=== PATIENT | male | born 1955 | race Caucasian/White ===

== ENCOUNTER 2016-08-29 05:29 | Day surgery (SDC) | payer OTHER ==
[2016-08-22 08:15] VITALS: Ht 170.2 cm; Wt 115.8 kg
--- NOTE | 2016-08-22 08:55 | PAT Medication Instructions ---
Service Date August 22, 2016. Current Home Medication List Alprazolam (Xanax), 0.5 MG PO UD PRN for PANIC ATTACKS/ANXIETY Amoxicillin (Amoxil), 4 TAB PO 1 HOUR BEFORE DENTAL Ascorbic Acid (Vitamin C), 1 TAB PO BID Aspirin (Aspirin Ec), 81 MG PO QAM Atenolol (Tenormin), 25 MG PO HS Benazepril (Lotensin), 20 MG PO QAM Citalopram Hydrobromide (Celexa), 10 MG PO HS Cyclobenzaprine Hcl (Flexeril), 10 MG PO TID PRN for Muscle Spasms Diclofenac (Voltaren ), 20 MG PO BID Lorazepam (Ativan), 1-2 TAB PO DAILY PRN for ANXIETY/PANIC ATTACKS Losartan Potassium (Cozaar), 50 MG PO QAM Multivitamin (Multivitamin), 1 TAB PO QAM Pantoprazole (Protonix), 40 MG PO QAM Rosuvastatin Calcium (Crestor), 20 MG PO HS Tramadol (Ultram), 1-2 TAB PO Q6 PRN for Pain Medication Instructions For Your Scheduled Surgery - Hold the following medications the morning of surgery: Ascorbic Acid (Vitamin C), 1 TAB PO BID Benazepril (Lotensin), 20 MG PO QAM Losartan Potassium (Cozaar), 50 MG PO QAM Multivitamin (Multivitamin), 1 TAB PO QAM Diclofenac (Voltaren ), 20 MG PO BID (otherwise okay to continue per surgeon) Cyclobenzaprine Hcl (Flexeril), 10 MG PO TID PRN for Muscle Spasms - Take the following medications the morning of surgery with a sip of water OTHERWISE NOTHING TO EAT OR DRINK AFTER MIDNIGHT: Tramadol (Ultram), 1-2 TAB PO Q6 PRN for Pain Aspirin (Aspirin Ec), 81 MG PO QAM (okay to continue per surgeon) Lorazepam (Ativan), 1-2 TAB PO DAILY PRN for ANXIETY/PANIC ATTACKS Alprazolam (Xanax), 0.5 MG PO UD PRN for PANIC ATTACKS/ANXIETY Pantoprazole (Protonix), 40 MG PO QAM - Take the following medications as scheduled the night before surgery: Ascorbic Acid (Vitamin C), 1 TAB PO BID Tramadol (Ultram), 1-2 TAB PO Q6 PRN for Pain Lorazepam (Ativan), 1-2 TAB PO DAILY PRN for ANXIETY/PANIC ATTACKS Atenolol (Tenormin), 25 MG PO HS Citalopram Hydrobromide (Celexa), 10 MG PO HS Rosuvastatin Calcium (Crestor), 20 MG PO HS Alprazolam (Xanax), 0.5 MG PO UD PRN for PANIC ATTACKS/ANXIETY Diclofenac (Voltaren ), 20 MG PO BID If you have any questions please call us at [phone] or [phone] or [phone]
[2016-08-22 10:04] LABS: URINE APPEARANCE CLEAR (CLEAR); URINE BILIRUBIN NEG (NEG); URINE COLOR DK YELLOW; URINE NITRITE NEG (NEG); URINE SPECIFIC GRAVITY 1.024 (1.000-1.030); UROBILINOGEN NEG (NEG); ZZUR CULT IF INDIC CLEAN CATCH NO
[2016-08-22 10:32] LABS: MANUAL MICROSCOPIC REQUIRED? NO; REVIEW REQ? NO
[~2016-08-29] VITALS: Ht 170.2 cm; Wt 115.8 kg
[~2016-08-29 05:29] MED LIST: ALPR-411 PO; AMOX500C3 PO; ASCA500 PO; ASPI81TA28 PO; ATEN-173 PO; BENA20TA14 PO; CITA10TA8 PO; CRS/10 PO; CYCL10TA6 PO; DICL1TAB5 PO; LORA-741 PO; LOSA50TA6 PO; MULT-506 PO; PANT40TA PO; TRAM-10 PO
[2016-08-29] MEDS ORDERED: CEFAZOLIN 2000 MG/60 ML D5W IV SCH (06:00)
[2016-08-29 06:06] VITALS: BP 132/74; PULSE 56; TEMP 37.3; O2SAT 96
[2016-08-29] MEDS ORDERED: ONDANSETRON INJ 2 MG/ML 2 ML VIAL ONE (06:29)
[2016-08-29] MEDS ORDERED: GLYCOPYRROLATE INJ 0.2 MG/ML VIAL ONE ×2 (06:29→09:58)
[2016-08-29] MEDS ORDERED: LIDOCAINE HCL 2% 2 ML VIAL (20MG/ML) ONE (06:29)
[2016-08-29] MEDS ORDERED: MIDAZOLAM HCL 1 MG/ML 2ML VIAL ONE (06:29)
[2016-08-29] MEDS ORDERED: PROPOFOL IV EMULSION 10 MG/ML 20 ML VIAL IV ONE ×2 (06:29→08:01)
[2016-08-29] MEDS ORDERED: DEXAMETHASONE SOD INJ 4 MG/ML VIAL ONE (06:29)
[2016-08-29] MEDS ORDERED: NEOSTIGMINE METHYLSULFATE 5 MG/5 ML SYR ONE (06:29)
[2016-08-29] MEDS ORDERED: FENTANYL CITRATE INJ 50 MCG/1 ML 2 ML VIAL ONE ×2 (06:29)
[2016-08-29] MEDS ORDERED: ROCURONIUM BROMIDE 10 MG/ML 5 ML VIAL ONE ×2 (06:29→08:01)
[2016-08-29] MEDS ORDERED: CEFAZOLIN SOD 1 GM VIAL ONE (06:34)
[2016-08-29] MEDS ORDERED: LIDOCAINE HCL 1% 20 ML VIAL ONE (06:34)
[2016-08-29] MEDS ORDERED: BUPIVACAINE 0.5 % 5 MG/1 ML MPF 30ML VIAL ONE (06:34)
--- NOTE | 2016-08-29 06:51 | History & Physical Bridge Note ---
H&P Re-Evaluation Bridge Note: I have examined the patient, reviewed the History & Physical and in the interval since the performance of the History & Physical I have noted the following changes of clinical significance: No changes noted
[2016-08-29] MEDS ORDERED: PHENYLEPHRINE 100MCG/ML 5ML SYR ONE (07:15)
[2016-08-29] MEDS ORDERED: ONDANSETRON INJ 2 MG/ML 2 ML VIAL IV PRN ×2 (07:30→09:30)
[2016-08-29] MEDS ORDERED: EpHEDrine SULFATE INJ 50 MG/ML AMP IV PRN (07:30)
[2016-08-29] MEDS ORDERED: HYDROmorphone INJ 1 MG/ML SYR IV PRN (07:30)
[2016-08-29] MEDS ORDERED: PROMETHAZINE HCL INJ 6.25 MG in SODIUM CHLORIDE 0.9% 50ML 50 ML IV PRN (07:30)
[2016-08-29] MEDS ORDERED: ATROPINE SULFATE 0.1 MG/ML 5ML SYR IV PRN (07:30)
[2016-08-29] MEDS ORDERED: FENTANYL CITRATE INJ 50 MCG/1 ML 2 ML VIAL IV PRN (07:30)
[2016-08-29] MEDS ORDERED: EpHEDrine SULFATE INJ 50 MG/ML AMP ONE (07:45)
[2016-08-29] MEDS ORDERED: SODIUM CHLORIDE 0.9% 1000ML 1,000 ML IV SCH (09:17)
--- NOTE | 2016-08-29 09:17 | [facility] Post Operative Brief Note ---
Immediate Operative Summary Operative Date August 29, 2016. Pre-Operative Diagnosis Ventral Hernia Post-Operative Diagnosis Ventral Hernia Procedure(s) Performed Ventral Hernia Repair with Mesh Surgeon Dr. Trent Timber Framer Surgeon(s) VELVET Diana Estimated Blood Loss 5 cc Findings See dictation Specimens none per surgeon Drains None Anesthesia General Complication(s) None Disposition Recovery Room / PACU
--- NOTE | 2016-08-29 09:20 | Discharge Instructions ---
Discharge Instructions Date of Service August 29, 2016. Admission Reason for Admission: Ventral Hernia Discharge Discharge Diagnosis / Problem: Same Discharge Goals Goal(s): Decrease discomfort Activity Recommendations Activity Limitations: per Instructions/Follow-up section Lifting Limitations: no more than 10 pounds (for 6 weeks) Shower/Bathe: may shower/bathe in 3 days (Shower only) . Instructions / Follow-Up Instructions / Follow-Up ACTIVITY RECOMMENDATIONS: * Walk as much as possible. * No heavy lifting (>10 lbs.) for 6 weeks. SPECIAL CARE INSTRUCTIONS: * Ice to hernia repair site on and off until bedtime tonight. * Remove outer dressing on . * May shower after dressing removed. Let water run over area and pat dry. * Leave steri strips on for one week. * Call the surgeon's office with any questions or concerns - (ex. temperature higher than 101 degrees F, excessive bleeding or pain). MEDICATIONS: Resume previous medications unless instructed otherwise by your surgeon. * Ibuprofen 600 mg every 6 hours with food * Percocet 1 every 4 hours, as needed for pain FOLLOW UP VISIT: If not already scheduled, please call the office to schedule a two week follow- up appointment. Office number Current Hospital Diet Patient's current hospital diet: Discharge Diet Recommended Diet: Regular Diet Procedures Procedures Performed: Ventral Hernia Repair with Mesh Pending Studies Studies pending at discharge: no Medical Emergencies . Who to Call and When: Medical Emergencies: If at any time you feel your situation is an emergency, please call 911 immediately. . Non-Emergent Contact Non-Emergency issues call your: Primary Care Provider, Surgeon Call Non-Emergent contact if: your pain is worsening, wound has increased redness, wound has increased pain . "Provider Documentation" section prepared by Kahlil Trent. . VTE Core Measure Inpt VTE Proph given/why not?: Treatment not indicated
[2016-08-29] MEDS ORDERED: MoRPHine SULFATE 4 MG/ML 1 ML CARP\\VIAL IV PRN (09:30)
[2016-08-29] MEDS ORDERED: OXYCODONE/ACETAMINOPHEN 5-325 TAB PO PRN (09:30)
[2016-08-29 09:52] VITALS: BP 125/70; PULSE 65; TEMP 36.9; O2SAT 98
--- NOTE | 2016-08-29 09:52 | Anesthesiology Progress Note ---
Anesthesia Post Op Note Date & Time August 29, 2016 at 09:53 Vital Signs Pain Intensity: 0 Vital Signs Past 12 Hours Date Time Temp Pulse Resp B/P Pulse Ox O2 Delivery O2 Flow Rate FiO2 08/29/16 09:43 69 18 08/29/16 09:43 69 18 91 08/29/16 09:41 127/67 08/29/16 09:38 67 13 96 08/29/16 09:38 67 13 08/29/16 09:37 67 21 94 08/29/16 09:37 68 21 08/29/16 09:36 131/69 08/29/16 09:36 36.4 68 16 131/69 99 Nasal Cannula 2 08/29/16 09:32 68 15 92 08/29/16 09:32 68 15 08/29/16 09:31 134/63 08/29/16 09:27 68 17 94 08/29/16 09:27 68 17 08/29/16 09:26 123/67 08/29/16 09:22 71 14 08/29/16 09:22 71 14 93 08/29/16 09:21 128/65 08/29/16 09:17 70 13 08/29/16 09:17 70 13 100 08/29/16 09:16 130/60 08/29/16 09:12 74 18 08/29/16 09:12 74 18 99 08/29/16 09:11 76 16 133/61 99 08/29/16 09:11 77 16 08/29/16 09:06 72 17 127/63 92 08/29/16 09:06 72 17 08/29/16 09:02 121/64 08/29/16 09:01 36.4 73 14 121/64 97 Mask 10 08/29/16 09:01 70 97 08/29/16 09:01 70 08/29/16 06:06 37.3 56 18 132/74 96 Room Air Notes Mental Status: alert / awake / arousable, participated in evaluation Pt Amnestic to Procedure: Yes Nausea / Vomiting: adequately controlled Pain: adequately controlled Airway Patency, RR, SpO2: stable & adequate BP & HR: stable & adequate Hydration State: stable & adequate Anesthetic Complications: no major complications apparent
[2016-08-29 10:20] VITALS: BP 113/58; PULSE 64; TEMP 36.7; O2SAT 95
[2016-08-29 10:50] VITALS: BP 109/62; PULSE 61; TEMP 36.7; O2SAT 95
[2016-08-29 11:15] VITALS: BP 141/71; PULSE 64; TEMP 36.7; O2SAT 94
--- NOTE | 2016-08-29 12:45 | OPERATIVE REPORT ---
DATE OF OPERATION: 08/29/2016 PREOPERATIVE DIAGNOSIS: Ventral hernia. POSTOPERATIVE DIAGNOSIS: Same. PROCEDURE: Repair of ventral hernia. SURGEON: Dr. Kahlil Trent. FINDINGS: The patient had 2 ventral defects. One measured approximately 2.5 cm and the other was less than a centimeter. There was a fascial bridge measuring approximately 5 mm between them and when that was divided to create one defect, the entire defect measured about 3.5 cm. The defect was located at the superior edge of the mesh that had been placed previously. There were no incarcerated bowel contents. There was some omentum within the hernia sac. TECHNIQUE: The patient was marked in the preop holding area, brought to the operating room and placed on the operating table, given a general anesthetic and the area was prepped and draped in usual sterile fashion. Transverse incision was made over the previously marked area, carried down through the subcutaneous tissue until the hernia sac could be identified. The hernia sac was away from the surrounding subcutaneous tissue using blunt, sharp and cautery dissection where appropriate. This dissection was carried down to the fascial defect superiorly. The fascial defect was identified on the left superior and then to the right, but the hernia sac had peeled on top of the fascia inferiorly and was densely adherent there due to previous scar tissue. The hernia sac was opened. The adhesion of the omentum to the internal portion was divided and the omentum was placed back into its anatomic position. The hernia sac was then dissected off the top of the fascia on the inferior side helping me identify the entire circumference of the edge of the fascial defect. Working on the superior side first, the peritoneum was peeled off the overlying fascia and then working with similar dissection to the left and to the right. It required more meticulous dissection inferiorly, peeling the peritoneum and some of the posterior sheath off the mesh that had been previously placed, but plane was able to be established for a distance of 2 cm beneath the previous mesh inferiorly and then at least 3 cm around the rest of the hernia defect. The peritoneum was then closed and any openings that had been created using interrupted 2-0 Vicryl. A round 10 cm mesh was then placed. I did have to trim it inferiorly over the area where the mesh was previously placed. The mesh fit nicely and it was lying flat. It was secured to the undersurface of the fascia in 4 quadrants using 0 PDS. The fascial defect was then closed using #1 PDS and the horizontal mattress sutures securing the mesh to the undersurface was then secured. The wound was irrigated and irrigation removed. The area was inspected for bleeding and none was seen. The subcutaneous tissue was closed with running 2-0 Vicryl and the skin was closed with 4-0 Monocryl in a running subcuticular fashion. The skin was anesthetized with 0.5% Marcaine. The skin was cleansed, dried, benzoin placed, Steri-Strips applied and a pressure dressing applied. The estimated blood loss was 5 mL. Sponge, needle, and instrument counts were correct prior to closure. The patient tolerated surgical procedure without complication and was transferred to recovery. I attest to the content of the Intraoperative Record and any orders documented therein. Any exceptio ns are noted below.
[2017-02-20] MEDS ORDERED: FURO-85 PO (15:29)
[2017-02-20] MEDS ORDERED: TAMS0.4C38 PO (15:29)
[2017-02-20] MEDS ORDERED: PHEN-876 PO (15:29)
[2017-02-20] MEDS ORDERED: OXYC-57 PO (15:29)
[2017-02-20] MEDS ORDERED: MELATAB2 PO (15:29)
[2017-02-20] MEDS ORDERED: [UNRECOGNIZED DRUG - OTHER] PO (15:31)
== END 2016-08-29 11:29 | disposition home or self-care (01) ==
LOC: C.ACU 05:29
PROVIDERS: ATTEND Surgery
DX: K43.9 Ventral hernia without obstruction or gangrene (principal); I25.10 Atherosclerotic heart disease of native coronary artery without angina pectoris; E78.5 Hyperlipidemia, unspecified; M51.26 Other intervertebral disc displacement, lumbar region; I10 Essential (primary) hypertension; I25.2 Old myocardial infarction

== ENCOUNTER 2016-10-18 19:42 | Observation (INO) | payer OTHER ==
[~2016-10-18] VITALS: Ht 170.2 cm; Wt 109.2 kg
[2016-10-18] MEDS ORDERED: FURO-85 PO (20:14)
[2016-10-18] MEDS ORDERED: SODIUM CHLORIDE 0.9% 1000ML 1,000 ML IV STA (20:29)
[2016-10-18 20:46] LABS: HEMATOCRIT 43.6 % (42-52); MEAN CELL VOLUME 86.5 fL (80-100); MEAN CORPUSCULAR HEMOGLOBIN 29.4 pg (25-34); MEAN CORPUSCULAR HGB CONC 33.9 g/dl (32-36); MEAN PLATELET VOLUME 10.6 fL (7.4-10.4); PLATELET COUNT 234 K/uL (130-400); RED BLOOD COUNT 5.04 M/uL (4.7-6.1); WHITE BLOOD COUNT 12.46 K/uL (4.8-10.8)
--- NOTE | 2016-10-18 20:53 | DIAGNOSTIC IMAGING REPORT ---
CHEST ONE VIEW PORTABLE CLINICAL HISTORY: Weakness. Near syncope. Dizziness. COMPARISON STUDY: No previous studies for comparison. FINDINGS: The patient is mildly rotated. There is no pneumothorax or pleural effusion. Cardiac size is normal. There is no evidence of pulmonary edema. No consolidation is identified. IMPRESSION: No acute cardiopulmonary findings. Electronically signed by: Jose Ridley M.D. 10/18/2016 8:52 PM Dictated Date/Time: 10/18/2016 8:51 PM
[2016-10-18 21:03] LABS: PROTHROMBIN TIME (PATIENT) 10.7 SECONDS (9.0-12.0)
[2016-10-18 21:08] LABS: ALT/SGPT 37 U/L (12-78); BLOOD UREA NITROGEN 15 mg/dl (7-18); BUN/CREATININE RATIO 12.4 (10-20); CALCIUM 10.2 mg/dl (8.5-10.1); CARBON DIOXIDE 24 mmol/L (21-32); CHLORIDE 104 mmol/L (98-107); GLUCOSE 123 mg/dl (70-99); POTASSIUM 3.6 mmol/L (3.5-5.1); SODIUM 139 mmol/L (136-145)
[2016-10-18 21:17] LABS: BASO % 0.2 %; BASO ABS # 0.02 K/uL (0-0.2); COMPLETE YES; EOS % 0.7 %; IG% 0.3 %; LYMPH % 11.2 %; LYMPH ABS # 1.39 K/uL (1.2-3.4); MONO % 4.3 %; NEUT % 83.3 %
[2016-10-18 21:19] LABS: ALKALINE PHOSPHATASE 61 U/L (45-117); AST/SGOT 26 U/L (15-37); CKMB/CK RATIO 1.1 (0-3.0)
[2016-10-18 21:30] LABS: URINE APPEARANCE CLEAR (CLEAR); URINE BILIRUBIN NEG (NEG); URINE COLOR DK YELLOW; URINE EPITHELIAL CELL AUTO >30 /lpf (0-5); URINE NITRITE NEG (NEG); URINE SPECIFIC GRAVITY 1.021 (1.000-1.030); UROBILINOGEN NEG (NEG)
[2016-10-18 21:34] LABS: MANUAL MICROSCOPIC REQUIRED? NO; REVIEW REQ? YES
[2016-10-18 21:41] LABS: SULFASALICYLIC ACID NEG (NEG)
[2016-10-18 21:52] LABS: URINE MUCUS PRESENT (NONE PRSENT)
[2016-10-18] MEDS ORDERED: POLYETHYLENE (MIRALAX) 17 GM PACK PO PRN (23:30)
[2016-10-18] MEDS ORDERED: NITROGLYCERIN 0.4 MG SL PER TAB CHARGE SL PRN (23:30)
[2016-10-18] MEDS ORDERED: ONDANSETRON INJ 2 MG/ML 2 ML VIAL IV PRN (23:30)
[2016-10-18] MEDS ORDERED: MoRPHine SULFATE 2 MG/ML CARP IV PRN (23:30)
[2016-10-18] MEDS ORDERED: ACETAMINOPHEN 325 MG TAB PO PRN (23:30)
[2016-10-18] MEDS ORDERED: CYCLOBENZAPRINE HCL 10 MG TAB PO PRN (23:45)
[2016-10-18] MEDS ORDERED: ALPRAZOLAM 0.5 MG TAB PO PRN (23:45)
[2016-10-18] MEDS ORDERED: TRAMADOL HCL 50 MG TAB PO PRN (23:45)
[2016-10-19 00:20] VITALS: BP 128/80; PULSE 54; TEMP 36.7; O2SAT 93; Ht 170.2 cm; Wt 109.2 kg
[2016-10-19] MEDS ORDERED: IV FLUIDS COMPLETED PRN (00:45)
--- NOTE | 2016-10-19 01:46 | EMERGENCY ROOM VISIT NOTE ---
History Report prepared by Kesha: Radha Cotto Under the Supervision of: Dr. Kanu Solis M.D. First contact with patient: 20:29 Chief Complaint: DIZZY Stated Complaint: DIZZY, NEAR SYNCOPE, VOMITING Nursing Triage Summary: Patient arrived to [facility] via ALS from home. Patient has a history of 4 cardiac stents being placed in 2002, HTN, high cholesterol, bleeding ulcers (for which he takes protonix), umbilical hernia repair x 2, cataract surgery. Patient states "I was outside working on my truck and suddenly got very sick. I became very short of breath, dizzy, nauseated, pale, clammy and diaphoretic. I vomited about 4 times and believe I passed out while trying to get to the house. I was able to finally call my around 1730 for some help." EMS report that upon their arrival, he was still pale and diaphoretic. Patient had emesis x 2 with the EMS crew. Upon arrival to the ED, patient reports that he is feeling much better. Patient is still dizzy with generalized weakness; no pain; nausea is intermittent. Patient reports a recent diagnosis of bleeding ulcers for which he was started on Protonix. Patient took an 81mg ASA at home and was given an additional 243mg of ASA in route to the ED. History of Present Illness The patient is a 61 year old male who presents to the Emergency Room with complaints of sudden dizziness that began this afternoon. The patient states that he was outside working on his truck when he started feeling dizzy, short of breath, and diaphoretic. He additionally notes that he was pale and clammy. The patient states that he had a loss of consciousness for an unknown amount of time. He states that he remembers staggering into his house after pulling himself off of the ground. The patient states that for the past several months he has been worked up for his known kidney stones. The patient's notes that the patient's currently has a 1 cm stone in his kidney. She states that the patient states that the patient has had intermittent abdominal pain, back pain, and urinary symptoms. The patient reports intermittent nausea, but states that he did vomit four times. He additionally notes generalized weakness. The patient denies any recent prolonged travel or history of blood clots. 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 He states that he had four cardiac stents placed in 2002 and a history of a previous LA. Pt denies headache, fevers, chills, visual changes, neck pain, chest pain, leg pain or cramps, melena, hematochezia, numbness, lymphadenopathy, rash, or other complaints. Source of History: patient, spouse/significant other () Onset: this afternoon Position: other (global) Quality: other (dizziness) Timing: other (sudden) Associated Symptoms: + LOC, + diaphoresis, + SOB, + nausea, + vomiting, + abdominal pain, + back pain, + urinary symptoms, + numbness Note: Associated Symptoms: pale, clammy Review of Systems See HPI for pertinent positives and negatives. A total of ten systems were reviewed and were otherwise negative. Past Medical & Surgical Medical Problems: (1) Coronary atherosclerosis (2) Dyslipidemia (3) Hypertension (4) Myocardial infarction (5) Syncope Surgical Problems: (1) H/O umbilical hernia repair (2) History of carpal tunnel surgery (3) S/P angioplasty with stent Family History No pertinent family history stated Social History Smoking Status: Never Smoker Marital Status: Housing Status: lives with significant other Occupation Status: employed Current/Historical Medications Scheduled Amoxicillin (Amoxil), 4 TAB PO 1 HOUR BEFORE DENTAL Ascorbic Acid (Vitamin C), 250 MG PO BID Aspirin (Aspirin Ec), 81 MG PO QAM Atenolol (Tenormin), 25 MG PO HS Benazepril (Lotensin), 20 MG PO QAM Citalopram Hydrobromide (Celexa), 20 MG PO HS Losartan Potassium (Cozaar), 50 MG PO QAM Multivitamin (Multivitamin), 1 TAB PO QAM Pantoprazole (Protonix), 40 MG PO QAM Rosuvastatin Calcium (Crestor), 20 MG PO HS Scheduled PRN Alprazolam (Xanax), 0.5 MG PO UD PRN for PANIC ATTACKS/ANXIETY Cyclobenzaprine Hcl (Flexeril), 10 MG PO TID PRN for Muscle Spasms Diclofenac (Voltaren ), 20 MG PO BID PRN for knee pain Lorazepam (Ativan), 1-2 TAB PO DAILY PRN for ANXIETY/PANIC ATTACKS Tramadol (Ultram), 1-2 TAB PO Q6 PRN for Pain Allergies Coded Allergies: Simvastatin (Verified Adverse Reaction, Unknown, PAIN IN LOWER EXTREMITIES , 10/18/16) Physical Exam Vital Signs Date Time Temp Pulse Resp B/P (MAP) Pulse Ox O2 Delivery O2 Flow Rate FiO2 10/18/16 22:06 55 18 132/80 96 Room Air 10/18/16 21:19 54 20 116/80 92 Room Air 10/18/16 20:33 98 Room Air 10/18/16 20:24 56 10/18/16 19:48 60 20 110/73 97 Room Air 65 133/82 65 111/94 10/18/16 19:48 97 Room Air 10/18/16 19:45 37.2 60 18 110/73 96 Room Air Physical Exam GENERAL: Awake, alert, well-appearing, in no distress HENT: Normocephalic, atraumatic. Oropharynx unremarkable. EYES: Normal conjunctiva. Sclera non-icteric. NECK: Supple. No nuchal rigidity. FROM. No JVD. RESPIRATORY: Clear to auscultation. CARDIAC: Regular rate, normal rhythm. Extremities warm and well perfused. Pulses equal. ABDOMEN: Soft, non-distended. No tenderness to palpation. No rebound or guarding. No masses. RECTAL: Deferred. MUSCULOSKELETAL: Chest examination reveals no tenderness. The back is symmetrical on inspection without obvious abnormality. There is no CVA tenderness to palpation. No joint edema. LOWER EXTREMITIES: Calves are equal size bilaterally and non-tender. No edema. No discoloration. NEURO: Normal sensorium. No sensory or motor deficits noted. SKIN: No rash or jaundice noted. Medical Decision & Procedures ER Provider Diagnostic Interpretation: X-ray: Per my interpretation, radiologist review. CHEST ONE VIEW PORTABLE CLINICAL HISTORY: Weakness. Near syncope. Dizziness. COMPARISON STUDY: No previous studies for comparison. FINDINGS: The patient is mildly rotated. There is no pneumothorax or pleural effusion. Cardiac size is normal. There is no evidence of pulmonary edema. No consolidation is identified. IMPRESSION: No acute cardiopulmonary findings. Electronically signed by: Jose Ridley M.D. 10/18/2016 8:52 PM Dictated Date/Time: 10/18/2016 8:51 PM Laboratory Results 10/18/16 20:05 Red Blood Count 5.04, Mean Corpuscular Volume 86.5, Mean Corpuscular Hemoglobin 29.4, Mean Corpuscular Hemoglobin Concent 33.9, Mean Platelet Volume 10.6, Neutrophils (%) (Auto) 83.3, Lymphocytes (%) (Auto) 11.2, Monocytes (%) (Auto) 4.3, Eosinophils (%) (Auto) 0.7, Basophils (%) (Auto) 0.2, Neutrophils # (Auto) 10.39, Lymphocytes # (Auto) 1.39, Monocytes # (Auto) 0.53, Eosinophils # (Auto) 0.09, Basophils # (Auto) 0.02 10/18/16 20:05 Test 10/18/16 20:05 10/18/16 20:40 White Blood Count 12.46 K/uL (4.8-10.8) Red Blood Count 5.04 M/uL (4.7-6.1) Hemoglobin 14.8 g/dL (14.0-18.0) Hematocrit 43.6 % (42-52) Mean Corpuscular Volume 86.5 fL (80-100) Mean Corpuscular Hemoglobin 29.4 pg (25-34) Mean Corpuscular Hemoglobin Concent 33.9 g/dl (32-36) Platelet Count 234 K/uL (130-400) Mean Platelet Volume 10.6 fL (7.4-10.4) Neutrophils (%) (Auto) 83.3 % Lymphocytes (%) (Auto) 11.2 % Monocytes (%) (Auto) 4.3 % Eosinophils (%) (Auto) 0.7 % Basophils (%) (Auto) 0.2 % Neutrophils # (Auto) 10.39 K/uL (1.4-6.5) Lymphocytes # (Auto) 1.39 K/uL (1.2-3.4) Monocytes # (Auto) 0.53 K/uL (0.11-0.59) Eosinophils # (Auto) 0.09 K/uL (0-0.5) Basophils # (Auto) 0.02 K/uL (0-0.2) RDW Standard Deviation 42.5 fL (36.4-46.3) RDW Coefficient of Variation 13.4 % (11.5-14.5) Immature Granulocyte % (Auto) 0.3 % Immature Granulocyte # (Auto) 0.04 K/uL (0.00-0.02) Prothrombin Time 10.7 SECONDS (9.0-12.0) Prothromb Time International Ratio 1.0 (0.9-1.1) Activated Partial Thromboplast Time 25.0 SECONDS (21.0-31.0) Partial Thromboplastin Ratio 1.0 Anion Gap 11.0 mmol/L (3-11) Est Creatinine Clear Calc Drug Dose 76.7 ml/min Estimated GFR () 75.2 Estimated GFR (Non- 64.9 BUN/Creatinine Ratio 12.4 (10-20) Calcium Level 10.2 mg/dl (8.5-10.1) Magnesium Level 2.0 mg/dl (1.8-2.4) Total Bilirubin 0.5 mg/dl (0.2-1) Direct Bilirubin 0.1 mg/dl (0-0.2) Aspartate Amino Transf (AST/SGOT) 26 U/L (15-37) Alanine Aminotransferase (ALT/SGPT) 37 U/L (12-78) Alkaline Phosphatase 61 U/L (45-117) Total Creatine Kinase 136 U/L (39-308) Creatine Kinase MB 1.5 ng/ml (0.5-3.6) Creatine Kinase MB Ratio 1.1 (0-3.0) Troponin I < 0.015 ng/ml (0-0.045) Total Protein 9.0 gm/dl (6.4-8.2) Albumin 4.8 gm/dl (3.4-5.0) Thyroid Stimulating Hormone (TSH) 1.130 uIu/ml (0.300-4.500) Urine Color DK YELLOW Urine Appearance CLEAR (CLEAR) Urine pH 8.0 (4.5-7.5) Urine Specific Tinnie 1.021 (1.000-1.030) Urine Protein NEG (NEG) Urine Glucose (UA) NEG (NEG) Urine Ketones 3+ (NEG) Urine Occult Blood 2+ (NEG) Urine Nitrite NEG (NEG) Urine Bilirubin NEG (NEG) Urine Urobilinogen NEG (NEG) Urine Leukocyte Esterase TRACE (NEG) Urine WBC (Auto) 1-5 /hpf (0-5) Urine RBC (Auto) >30 /hpf (0-4) Urine Hyaline Casts (Auto) 1-5 /lpf (0-5) Urine Epithelial Cells (Auto) >30 /lpf (0-5) Urine Bacteria (Auto) NEG (NEG) Urine Renal Epithelial Cells /lpf (0-5) Urine Pathogenic Casts /lpf (0) Urine Mucus PRESENT (NONE PRSENT) Laboratory results reviewed by me Medications Administered Medications (Trade) Dose Ordered Sig/Samantha Route Start Time Stop Time Status Last Admin Dose Admin Sodium Chloride 1,000 ml @ 125 mls/hr Q8H STAT IV 10/18/16 20:29 10/19/16 00:27 DC 10/18/16 20:45 125 MLS/HR ECG Indication: other (dizziness) Rate (beats per minute): 56 Rhythm: sinus bradycardia Findings: LAFB, RBBB, no acute ischemic change, no ectopy ED Course 2028: Ordered Sodium Chloride 1000 ml @ 125 mls/hr IV. 2155: The patient was evaluated in room A9B. A complete history and physical exam was performed. I discussed all the exam findings with the patient and his and I discussed the treatment plan. They verbalized complete understanding and agreement. The patient will be evaluated for further treatment. 2206: I discussed the patients case with Mendy Salazar. She is going to evaluate the patient for further treatment. Medical Decision Medication Reconciliation: I attest that I have personally reviewed the patient' s current medication list Patient was found to have a slightly elevated blood pressure due to circumstances. I do not believe that the patient requires hypertension monitoring. Triage Nursing notes reviewed. The patient's presentation and history were concerning for syncope, shortness of breath, and vomiting. The patient denied any neurologic symptoms. He had no headache. Etiologies such as vasovagal event, infection, hypoglycemia, electrolyte abnormalities, cardiac sources, intracerebral event, toxicologic, neurologic, as well as others were entertained. The patient was evaluated. He was feeling much better, almost back to normal compared to his episode at home. Blood work and imaging were obtained. ECG did reveal some T-wave inversions. The patient did not have any chest pain. Her ECG was not immediately available. His CBC revealed a mild leukocytosis. The patient did have some blood in his urine but has had this in the past and states he has been followed by urology. The patient has an unremarkable chemistry panel, LFTs, cardiac markers and TSH. Given his extensive cardiac history and this event I am concerned about a possible cardiac source. I discussed further evaluation and management in the hospital with the patient and his and they were very much in agreement. I did consult with the Mendy hospitalist and the patient was evaluated in the Emergency Room for further management. Consults Time Called: 2205 Consulting Physician: Mendy Salazar Returned Call: [phone] I discussed the patients case with Mendy Salazar. She is going to evaluate the patient for further treatment. Impression Primary Impression: Syncope Additional Impressions: Shortness of breath History of coronary artery disease Scribe Attestation The scribe's documentation has been prepared under my direction and personally reviewed by me in its entirety. I confirm that the note above accurately reflects all work, treatment, procedures, and medical decision making performed by me. Departure Information Dispostion Being Evaluated By Hospitalist Referrals Moy Munoz D.O. (PCP) Problem Qualifiers
[2016-10-19 02:54] LABS: CKMB/CK RATIO 0.9 (0-3.0)
--- NOTE | 2016-10-19 04:14 | History and Physical ---
History & Physical Date & Time of Service: Oct 18, 2016 at 23:35 Chief Complaint: Dizzy, Near Syncope, Vomiting Primary Care Physician: Moy Munoz D.O. History of Present Illness Source: patient, spouse, clinic records, hospital records 61 yo M with known CAD and 100% occlusion of LAD presents via EMS after feeling lightheaded while outside working on his truck. He says he can't remember what happened but work up on the ground and felt weak with SOB and sweating. He thought he was dehydrated so he went inside his house and took a drink of water which didn't help him. He reports then vomiting a couple of times. He took a cold shower which also didn't help him and then he called his who called EMS. She is a nurse and was concerned he may be having a heart attack. The patient denies any chest pain and reports that back in 2002 when he had 4 stents placed ([facility]) be had some back pain at that time and had an abnormal stress test prompting the catheterization. He recently underwent pre-operative evaluation by Dr. Raphael and passed a treadmill stress test. He then underwent a hernia repair without incident/complication. He notes that Dr. Trent performed an EGD/CSP on him in July because of some anemia and he was found to have a gastric ulcer. He was then put on Metamucil and Protonix and has felt an improvement in some chronic LLQ pain since that time. He reports still getting that LLQ pain on occasion especially after eating and states that belching or passing gas makes it go away. He was having some dark coloring to his stool prior to this EGD but since starting the Protonix he has had normal stools and no blood seen. ROS reveals no headache, visual changes, cough, fevers, chills, sore throat, ear congestion or other cold symptoms, chest pain, diarrhea, constipation, UTI symptoms. He does report nausea, vomiting, SOB and weakness all which have resolved since being in the ER. He was given ASA in the ambulance and has been given IVF in the ER. Orthostatics were performed in ER and were negative and patient denies being lightheaded with standing. EKG reveals SB 56 with bifascicular block and QTc 571. CXR is unremarkable for acute process. Past Medical/Surgical History Medical Problems: (1) Cataract Status: Chronic (2) Coronary atherosclerosis Permanent Comment: s/p 4 stents in 2002-[facility] Status: Chronic (3) DJD (degenerative joint disease), cervical Status: Chronic (4) Dyslipidemia Status: Chronic (5) Erosive gastropathy Permanent Comment: found on EGD June 2016 Status: Chronic (6) Hypertension Status: Chronic (7) Myocardial infarction Status: Resolved (8) OA (osteoarthritis) of knee Status: Chronic Surgical Problems: (1) H/O hernia repair Status: Chronic (2) H/O umbilical hernia repair Status: Resolved (3) History of back surgery Status: Chronic (4) History of carpal tunnel surgery Status: Resolved (5) History of carpal tunnel surgery Status: Chronic (6) S/P angioplasty with stent Status: Resolved Family History FH: Alzheimers disease MOTHER FH: CAD (coronary artery disease) MOTHER FH: multiple myeloma FATHER Social History Smoking Status: Never Smoker Smokeless Tobacco Use: No Alcohol Use: none Drug Use: none Marital Status: Housing status: lives with significant other Occupational Status: employed Immunizations History of Influenza Vaccine: Yes Influenza Vaccine Date: Dec 25, 2015 History of Tetanus Vaccine?: Yes Tetanus Immunization Date: Jul 16, 2007 History of Pneumococcal: Yes Pneumococcal Date: Mar 15, 2006 History of Hepatitis B Vaccine: No Multi-Drug Resistant Organisms History of MDRO: No Allergies Coded Allergies: Simvastatin (Verified Adverse Reaction, Unknown, PAIN IN LOWER EXTREMITIES , 10/18/16) Home Medications Scheduled Amoxicillin (Amoxil), 4 TAB PO 1 HOUR BEFORE DENTAL Ascorbic Acid (Vitamin C), 250 MG PO BID Aspirin (Aspirin Ec), 81 MG PO QAM Atenolol (Tenormin), 25 MG PO HS Benazepril (Lotensin), 20 MG PO QAM Citalopram Hydrobromide (Celexa), 20 MG PO HS Losartan Potassium (Cozaar), 50 MG PO QAM Multivitamin (Multivitamin), 1 TAB PO QAM Pantoprazole (Protonix), 40 MG PO QAM Rosuvastatin Calcium (Crestor), 20 MG PO HS Scheduled PRN Alprazolam (Xanax), 0.5 MG PO UD PRN for PANIC ATTACKS/ANXIETY Cyclobenzaprine Hcl (Flexeril), 10 MG PO TID PRN for Muscle Spasms Diclofenac (Voltaren ), 20 MG PO BID PRN for knee pain Lorazepam (Ativan), 1-2 TAB PO DAILY PRN for ANXIETY/PANIC ATTACKS Tramadol (Ultram), 1-2 TAB PO Q6 PRN for Pain Review of Systems At least ten systems were reviewed and negative except as indicated in HPI. Physical Exam Vital Signs Date Time Temp Pulse Resp B/P (MAP) Pulse Ox O2 Delivery O2 Flow Rate FiO2 10/18/16 22:06 55 18 132/80 96 Room Air 10/18/16 21:19 54 20 116/80 92 Room Air 10/18/16 20:33 98 Room Air 10/18/16 20:24 56 10/18/16 19:48 60 20 110/73 97 Room Air 65 133/82 65 111/94 10/18/16 19:48 97 Room Air 10/18/16 19:45 37.2 60 18 110/73 96 Room Air GEN: WNWD, in no acute distress, alert and appropriate HEENT: NC/AT, PERRL, EOMI, normal sclerae/conjunctivae, MMM, pharynx non-acute CARDIO: reg rate, S1/2 heard without m/g/r LUNGS: CTA bilaterally, no crackles, rales or wheezes, good diaphragmatic excursion ABD: soft, non-tender, non-distended, no rebound or guarding, +BS EXTREMITY: RP and DP palpable 2+ bilat, no LE swelling or edema, extremities are warm and well-perfused NEURO: CN 2-12 grossly intact, sensation intact throughout, no gross focal deficits MUSC: 5/5 strength throughout, no gross focal deficits SKIN: warm and dry Diagnostics Laboratory Results Test 10/18/16 20:05 10/18/16 20:40 10/19/16 02:05 10/19/16 04:44 RDW Standard Deviation 42.5 fL (36.4-46.3) RDW Coefficient of Variation 13.4 % (11.5-14.5) White Blood Count 12.46 K/uL (4.8-10.8) Red Blood Count 5.04 M/uL (4.7-6.1) Hemoglobin 14.8 g/dL (14.0-18.0) Hematocrit 43.6 % (42-52) Mean Corpuscular Volume 86.5 fL (80-100) Mean Corpuscular Hemoglobin 29.4 pg (25-34) Mean Corpuscular Hemoglobin Concent 33.9 g/dl (32-36) Platelet Count 234 K/uL (130-400) Mean Platelet Volume 10.6 fL (7.4-10.4) Neutrophils (%) (Auto) 83.3 % Lymphocytes (%) (Auto) 11.2 % Monocytes (%) (Auto) 4.3 % Eosinophils (%) (Auto) 0.7 % Basophils (%) (Auto) 0.2 % Neutrophils # (Auto) 10.39 K/uL (1.4-6.5) Lymphocytes # (Auto) 1.39 K/uL (1.2-3.4) Monocytes # (Auto) 0.53 K/uL (0.11-0.59) Eosinophils # (Auto) 0.09 K/uL (0-0.5) Basophils # (Auto) 0.02 K/uL (0-0.2) Immature Granulocyte % (Auto) 0.3 % Immature Granulocyte # (Auto) 0.04 K/uL (0.00-0.02) Prothrombin Time 10.7 SECONDS (9.0-12.0) Prothromb Time International Ratio 1.0 (0.9-1.1) Activated Partial Thromboplast Time 25.0 SECONDS (21.0-31.0) Partial Thromboplastin Ratio 1.0 Est Creatinine Clear Calc Drug Dose 76.7 ml/min Magnesium Level 2.0 mg/dl (1.8-2.4) Total Bilirubin 0.5 mg/dl (0.2-1) Direct Bilirubin 0.1 mg/dl (0-0.2) Aspartate Amino Transf (AST/SGOT) 26 U/L (15-37) Alanine Aminotransferase (ALT/SGPT) 37 U/L (12-78) Alkaline Phosphatase 61 U/L (45-117) Total Protein 9.0 gm/dl (6.4-8.2) Albumin 4.8 gm/dl (3.4-5.0) Thyroid Stimulating Hormone (TSH) 1.130 uIu/ml (0.300-4.500) Urine Color DK YELLOW Urine Appearance CLEAR (CLEAR) Urine pH 8.0 (4.5-7.5) Urine Specific Franklin 1.021 (1.000-1.030) Urine Protein NEG (NEG) Urine Glucose (UA) NEG (NEG) Urine Ketones 3+ (NEG) Urine Occult Blood 2+ (NEG) Urine Nitrite NEG (NEG) Urine Bilirubin NEG (NEG) Urine Urobilinogen NEG (NEG) Urine Leukocyte Esterase TRACE (NEG) Urine WBC (Auto) 1-5 /hpf (0-5) Urine RBC (Auto) >30 /hpf (0-4) Urine Hyaline Casts (Auto) 1-5 /lpf (0-5) Urine Epithelial Cells (Auto) >30 /lpf (0-5) Urine Bacteria (Auto) NEG (NEG) Urine Renal Epithelial Cells /lpf (0-5) Urine Pathogenic Casts /lpf (0) Urine Mucus PRESENT (NONE PRSENT) Total Creatine Kinase 107 U/L (39-308) Creatine Kinase MB 1.0 ng/ml (0.5-3.6) Creatine Kinase MB Ratio 0.9 (0-3.0) Troponin I < 0.015 ng/ml (0-0.045) Results Past 24 Hours Test 10/18/16 20:05 10/18/16 20:40 Range/Units White Blood Count 12.46 4.8-10.8 K/uL Red Blood Count 5.04 4.7-6.1 M/uL Hemoglobin 14.8 14.0-18.0 g/dL Hematocrit 43.6 42-52 % Mean Corpuscular Volume 86.5 80-100 fL Mean Corpuscular Hemoglobin 29.4 25-34 pg Mean Corpuscular Hemoglobin Concent 33.9 32-36 g/dl Platelet Count 234 130-400 K/uL Mean Platelet Volume 10.6 7.4-10.4 fL Neutrophils (%) (Auto) 83.3 % Lymphocytes (%) (Auto) 11.2 % Monocytes (%) (Auto) 4.3 % Eosinophils (%) (Auto) 0.7 % Basophils (%) (Auto) 0.2 % Neutrophils # (Auto) 10.39 1.4-6.5 K/uL Lymphocytes # (Auto) 1.39 1.2-3.4 K/uL Monocytes # (Auto) 0.53 0.11-0.59 K/uL Eosinophils # (Auto) 0.09 0-0.5 K/uL Basophils # (Auto) 0.02 0-0.2 K/uL RDW Standard Deviation 42.5 36.4-46.3 fL RDW Coefficient of Variation 13.4 11.5-14.5 % Immature Granulocyte % (Auto) 0.3 % Immature Granulocyte # (Auto) 0.04 0.00-0.02 K/uL Prothrombin Time 10.7 9.0-12.0 SECONDS Prothromb Time International Ratio 1.0 0.9-1.1 Activated Partial Thromboplast Time 25.0 21.0-31.0 SECONDS Partial Thromboplastin Ratio 1.0 Sodium Level 139 136-145 mmol/L Potassium Level 3.6 3.5-5.1 mmol/L Chloride Level 104 98-107 mmol/L Carbon Dioxide Level 24 21-32 mmol/L Anion Gap 11.0 3-11 mmol/L Blood Urea Nitrogen 15 7-18 mg/dl Creatinine 1.20 0.60-1.40 mg/dl Est Creatinine Clear Calc Drug Dose 76.7 ml/min Estimated GFR () 75.2 Estimated GFR (Non- 64.9 BUN/Creatinine Ratio 12.4 10-20 Random Glucose 123 70-99 mg/dl Calcium Level 10.2 8.5-10.1 mg/dl Magnesium Level 2.0 1.8-2.4 mg/dl Total Bilirubin 0.5 0.2-1 mg/dl Direct Bilirubin 0.1 0-0.2 mg/dl Aspartate Amino Transf (AST/SGOT) 26 15-37 U/L Alanine Aminotransferase (ALT/SGPT) 37 12-78 U/L Alkaline Phosphatase 61 45-117 U/L Total Creatine Kinase 136 39-308 U/L Creatine Kinase MB 1.5 0.5-3.6 ng/ml Creatine Kinase MB Ratio 1.1 0-3.0 Troponin I < 0.015 0-0.045 ng/ml Total Protein 9.0 6.4-8.2 gm/dl Albumin 4.8 3.4-5.0 gm/dl Thyroid Stimulating Hormone (TSH) 1.130 0.300-4.500 uIu/ml Urine Color DK YELLOW Urine Appearance CLEAR CLEAR Urine pH 8.0 4.5-7.5 Urine Specific Franklin 1.021 1.000-1.030 Urine Protein NEG NEG Urine Glucose (UA) NEG NEG Urine Ketones 3+ NEG Urine Occult Blood 2+ NEG Urine Nitrite NEG NEG Urine Bilirubin NEG NEG Urine Urobilinogen NEG NEG Urine Leukocyte Esterase TRACE NEG Urine WBC (Auto) 1-5 0-5 /hpf Urine RBC (Auto) >30 0-4 /hpf Urine Hyaline Casts (Auto) 1-5 0-5 /lpf Urine Epithelial Cells (Auto) >30 0-5 /lpf Urine Bacteria (Auto) NEG NEG Urine Renal Epithelial Cells 0-5 /lpf Urine Pathogenic Casts 0 /lpf Urine Mucus PRESENT NONE PRSENT Diagnostic Radiology CHEST ONE VIEW PORTABLE CLINICAL HISTORY: Weakness. Near syncope. Dizziness. COMPARISON STUDY: No previous studies for comparison. FINDINGS: The patient is mildly rotated. There is no pneumothorax or pleural effusion. Cardiac size is normal. There is no evidence of pulmonary edema. No consolidation is identified. IMPRESSION: No acute cardiopulmonary findings. EKG SB56, RBBB, LAFB (bifascicular block), QTc 571 Impression Assessment and Plan 61 yo M with known CAD presents with acute syncope at home. 1. Syncope-associated with acute onset diaphoresis, shortness of breath and weakness. Etiologies include but not limited to dehydration/feeling poorly, heat stroke, orthostatic hypotension, vasovagal syncope with the weather, ACS. Pt uncertain if he actually passed out; this was unwitnessed but he remembers "at one point being on the ground" prior to going inside to drink some cold water and then take a cold shower prior to EMS arrival. Mild increase in CK on labs. IVF given. Favor heat-induced illness. ACS also unlikely as workup negative in ER so far and patient recently passed a treadmill stress test and underwent a surgery under general anesthesia without issue. Cont to monitor on telemetry overnight. 2. Dyspnea-has since resolved since being in ER. CXR negative. Ruling out ACS with serial cardiac enzymes overnight. 3. Gastropathy, non-bleeding erosive-thought 2/2 Diclofenac use for OA of knee which is severe. Since backing down on this medication and adding Protonix a few months ago, his abdominal discomfort has significantly decreased and he is no longer anemic. Cont PPI 4. OA knee-Tramadol PRN pain, hold NSAIDs. 5. Weakness-likely 2/2 #1 (heat-induced illness). No obvious underlying infection is present. Weakness is completely resolved. 6. CAD s/p stents-on good medical therapy as outpatient. Cont ASA, Atenolol, Benzapril, Cozaar and Crestor 7. Depression-stable, cont Celexa. DVT proph-Lovenox 40 FULL CODE Dispo-telemetry overnight, likely to home in am DO [facility]. Level of Care Telemetry Resuscitation Status FULL RESUSCITATION VTE Prophylaxis VTE Risk Assessment Done? Y/N: Yes Risk Level: Moderate Given or contraindicated: Enoxaparin (Lovenox)SQ
[2016-10-19 05:01] VITALS: BP 114/71; PULSE 50; TEMP 36.8; O2SAT 96
[2016-10-19 05:10] VITALS: BP 123/69; PULSE 53; TEMP 36.7; O2SAT 92
[2016-10-19 07:29] VITALS: BP 113/77; PULSE 50; TEMP 36.6; O2SAT 97
[2016-10-19 08:07] LABS: HEMATOCRIT 37.2 % (42-52); MEAN CELL VOLUME 87.1 fL (80-100); MEAN CORPUSCULAR HEMOGLOBIN 29.3 pg (25-34); MEAN CORPUSCULAR HGB CONC 33.6 g/dl (32-36); MEAN PLATELET VOLUME 10.2 fL (7.4-10.4); PLATELET COUNT 201 K/uL (130-400); RED BLOOD COUNT 4.27 M/uL (4.7-6.1); WHITE BLOOD COUNT 8.32 K/uL (4.8-10.8)
[2016-10-19 08:38] LABS: BUN/CREATININE RATIO 16.3 (10-20); CREATININE 0.93 mg/dl (0.60-1.40); POTASSIUM 3.9 mmol/L (3.5-5.1)
[2016-10-19 08:41] LABS: CHOLESTEROL/HDL RATIO 2.9
[2016-10-19 08:42] LABS: CKMB/CK RATIO 1.2 (0-3.0)
[2016-10-19] MEDS ORDERED: ASPIRIN 81 MG ECTAB PO SCH (09:00)
[2016-10-19] MEDS ORDERED: ENOXAPARIN 40 MG/0.4 ML SYR SC SCH (09:00)
[2016-10-19] MEDS ORDERED: ASCORBIC ACID 500 MG TAB PO SCH (09:00)
[2016-10-19] MEDS ORDERED: ENALAPRIL MALEATE 10 MG TAB PO SCH (09:00)
[2016-10-19] MEDS ORDERED: PANTOprazole SOD 40 MG TAB PO SCH (09:00)
[2016-10-19] MEDS ORDERED: MULTIVITAMIN TAB PO SCH (09:00)
[2016-10-19] MEDS ORDERED: LOSARTAN POTASSIUM 50 MG TAB PO SCH (09:00)
[2016-10-19 11:15] VITALS: BP 116/71; PULSE 59; TEMP 37.2; O2SAT 96
--- NOTE | 2016-10-19 14:30 | Cardiology Consultation ---
Cardiology Consultation Date of Consultation: Oct 19, 2016 History of Present Illness Patient is a 61 year old male with past medical history of coronary heart disease, hypertension, dyslipidemia who recently established with Dr. Raphael of our practice and was seen in preoperative consultation prior to elective hernia repair. The patient had a nonischemic response to stress echocardiogram but on to have uneventful outpatient hernia repair which she tolerated well from a cardiac standpoint. He had remained out of work while he was recovering from his hernia repair and yesterday he was working on his truck outdoors in the heat. He notes that he was perspiring quite a bit. He had progressive symptoms of feeling tired, weak , dizziness and lightheaded. He decided to go in for a drink and he subsequently passed out somewhere between were he was working and on entering his home. He was home alone and subsequently regained consciousness and went into his home where he continued to feel poorly with lightheadedness and feeling as though he was going to pass out and had several vomiting episodes. He called his spouse who in turn called EMS. On arrival an EKG was performed that revealed sinus rhythm at 65 bpm with right bundle branch block morphology and resultant repolarization changes. The patient presented to the emergency department and he notes feeling better shortly after arriving. IV fluids were administered and today he feels back to being his normal self. He does not recall ever having had a similar passing out spell. History Past Medical History: (1) Cataract (2) Coronary atherosclerosis, he had an abnormal stress test when he was living near [facility] and subsequently underwent 4 cardiac stents at [facility] in 2002. He has not had recurrent cardiac catheterization in the interim time (3) DJD (degenerative joint disease), cervical (4) Dyslipidemia (5) Erosive gastropathy (6) Hypertension (7) Myocardial infarction (8) OA (osteoarthritis) of knee Past Surgical History: (1) H/O hernia repair (2) H/O umbilical hernia repair (3) History of back surgery (4) History of carpal tunnel surgery (5) History of carpal tunnel surgery (6) S/P angioplasty with stent Social History: He is and lives the spouse. 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 Family History: Family history of dementia and his mother. His mother also had coronary artery disease. His father had multiple myeloma. Review Of Systems See above for pertinent positives & negatives. A total of 10 systems reviewed and were otherwise negative. Allergies Coded Allergies: Simvastatin (Verified Adverse Reaction, Unknown, PAIN IN LOWER EXTREMITIES , 10/18/16) Medications Reported Home Medications Medications Dose Route/Sig Max Daily Dose Days Date Category Vitamin C (Ascorbic Acid) 500 Mg Tab 250 Mg PO BID 08/22/16 Reported Multivitamin (Multivitamins) Tab 1 Tab PO QAM 08/22/16 Reported Protonix (Pantoprazole Sodium) 40 Mg Tab 40 Mg PO QAM 08/22/16 Reported Amoxil (Amoxicillin) 500 Mg Cap 4 Tab PO 1 HOUR BEFORE DENTAL 08/22/16 Reported Xanax (Alprazolam) 0.5 Mg Tab 0.5 Mg PO UD PRN 08/22/16 Reported Ativan (Lorazepam) 0.5 Mg Tab 1-2 Tab PO DAILY PRN 08/22/16 Reported Ultram (Tramadol HCl) 50 Mg Tab 1-2 Tab PO Q6 PRN 08/22/16 Reported Flexeril (Cyclobenzaprine Hcl) 10 Mg Tab 10 Mg PO TID PRN 08/22/16 Reported Celexa (Citalopram Hydrobromide) 10 Mg Tab 20 Mg PO HS 08/22/16 Reported Crestor (Rosuvastatin Calcium) 10 Mg Tab 20 Mg PO HS 08/22/16 Reported Voltaren (Diclofenac Sodium) 25 Mg Tabec 20 Mg PO BID PRN 08/22/16 Reported Cozaar (Losartan Potassium) 50 Mg Tab 50 Mg PO QAM 08/22/16 Reported Lotensin (Benazepril HCl) 20 Mg Tab 20 Mg PO QAM 08/22/16 Reported Aspirin Ec (Aspirin) 81 Mg Tab 81 Mg PO QAM 08/22/16 Reported Tenormin (Atenolol) 25 Mg Tab 25 Mg PO HS 08/22/16 Reported Physical Exam Vital Signs (Last 8hrs): Last 8 Hrs Date Time Temp Pulse Resp B/P (MAP) Pulse Ox O2 Delivery O2 Flow Rate FiO2 10/19/16 12:30 Room Air 10/19/16 11:15 37.2 59 22 116/71 (86) 96 Room Air 10/19/16 08:46 Room Air 10/19/16 07:45 Room Air 10/19/16 07:29 36.6 50 20 113/77 (89) 97 General Appearance: Alert and Oriented x3. NAD. Head: Normocephalic Atraumatic. Eyes: PERRLA, EOMI, conjunctiva and sclera clear Neck: Supple. No carotid bruits noted. No JVD. No HJD. Respiratory: Breath sounds clear to auscultation bilaterally. No w/r/r. Cardiovascular: Reg rate and rhythm. S1 and S2 noted. No murmurs, rubs, gallops. PMI non displace. Abdomen: Normal bowel sounds, soft nontender. no abdominal bruits. Extremities: No edema, no clubbing or cyanosis. distal pulses 2/4 bilaterally. Neuro: No focal deficits. Psychiatric: Normal affect. Data Last Resulted 10/19/16 07:48 Last Resulted 10/19/16 07:48 Past 24 Hours Test 10/18/16 20:05 10/19/16 02:05 10/19/16 07:48 Range/Units Creatine Kinase MB 1.5 1.0 1.2 0.5-3.6 ng/ml Creatine Kinase MB Ratio 1.1 0.9 1.2 0-3.0 Prothromb Time International Ratio 1.0 0.9-1.1 Prothrombin Time 10.7 9.0-12.0 SECONDS Total Creatine Kinase 136 107 100 39-308 U/L Troponin I < 0.015 < 0.015 < 0.015 0-0.045 ng/ml EKG performed on arrival yesterday 10/18/20161947: Sinus bradycardia with right bundle branch block and left anterior fascicular block (bifascicular block). Repeat EKG today is unchanged with continued bifascicular block. Telemetry reviewed: Sinus rhythm and sinus bradycardia with lowest heart rates were in the 50 beat per minute range. Assessment & Plan Impression: 61-year-old male 1. Syncopal episode, this could very well occurred due to finding depletion setting of being out of the sun performing physical labor. The patient however does have documented conduction system disease. At the time his recent stress echocardiogram that was performed for his hernia surgery he performed an adequate amount of exercise at just over 6 minutes on a Dale protocol. The baseline EKG was noted to have an incomplete right bundle branch block morphology that progressed to a complete report bundle-branch block morphology during exercise. EKG tracings performed this admission revealed sinus bradycardia with bifascicular block pattern. 2. Coronary heart disease, stable 3. Hypertension, stable 4. Dyslipidemia, stable Recommendations: At this time the patient has improved with fluid resuscitation. I do have concerns however about his risk of underlying conduction system disease and of course his symptoms could've been due to intermittent bradycardia. At this time I recommend he is discharged on his previous outpatient cardiac medications including atenolol without modification of the dose. I have ordered an cardiac outpatient threat monitoring analyst of 2 weeks duration in his outpatient chart. If his insurance will not reimburse for this monitor, recommend a 2 week [facility] threat monitoring analyst. 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 Case was discussed by telephone and Dr. Tomas. Marquise Chand DO, FACC, FACOI Associate Script Coordinator [facility] [place], [facility]
--- NOTE | 2016-10-19 15:56 | Progress Note ---
Medicine Progress Note Date & Time of Visit: Oct 19, 2016 at 15:47. Subjective seen resting in bed, comfortable states he feels back to baseline ambulating with no symptoms denies chest pain, dyspnea, dizziness, palpitations, nausea/vomiting no other symptoms states he is ready and would like to be discharged today at bedside, agrees Objective Last 8 Hrs Date Time Temp Pulse Resp B/P (MAP) Pulse Ox O2 Delivery O2 Flow Rate FiO2 10/19/16 12:30 Room Air 10/19/16 11:15 37.2 59 22 116/71 (86) 96 Room Air 10/19/16 08:46 Room Air Physical Exam: General- oriented x 3, not in distress, speaks in sentences with no effort Head- atraumatic Eyes- EOMI, anicteric ENT- oropharynx clear Neck- supple, no JVD, no adenopathy Lungs- clear breath sounds bilaterally, Heart- regular rhythm; no murmur, normal rate Abdomen- normal bowel sounds, soft, nontender Extremities- no pretibial edema, no calf tenderness Neuro- alert, oriented x 3; no gross focal deficits Skin- warm & dry Laboratory Results: Last 24 Hours Test 10/18/16 20:05 10/18/16 20:40 10/19/16 02:05 10/19/16 07:48 White Blood Count 12.46 K/uL 8.32 K/uL Red Blood Count 5.04 M/uL 4.27 M/uL Hemoglobin 14.8 g/dL 12.5 g/dL Hematocrit 43.6 % 37.2 % Mean Corpuscular Volume 86.5 fL 87.1 fL Mean Corpuscular Hemoglobin 29.4 pg 29.3 pg Mean Corpuscular Hemoglobin Concent 33.9 g/dl 33.6 g/dl Platelet Count 234 K/uL 201 K/uL Mean Platelet Volume 10.6 fL 10.2 fL Neutrophils (%) (Auto) 83.3 % Lymphocytes (%) (Auto) 11.2 % Monocytes (%) (Auto) 4.3 % Eosinophils (%) (Auto) 0.7 % Basophils (%) (Auto) 0.2 % Neutrophils # (Auto) 10.39 K/uL Lymphocytes # (Auto) 1.39 K/uL Monocytes # (Auto) 0.53 K/uL Eosinophils # (Auto) 0.09 K/uL Basophils # (Auto) 0.02 K/uL RDW Standard Deviation 42.5 fL 44.1 fL RDW Coefficient of Variation 13.4 % 13.9 % Immature Granulocyte % (Auto) 0.3 % Immature Granulocyte # (Auto) 0.04 K/uL Prothrombin Time 10.7 SECONDS Prothromb Time International Ratio 1.0 Activated Partial Thromboplast Time 25.0 SECONDS Partial Thromboplastin Ratio 1.0 Sodium Level 139 mmol/L 141 mmol/L Potassium Level 3.6 mmol/L 3.9 mmol/L Chloride Level 104 mmol/L 107 mmol/L Carbon Dioxide Level 24 mmol/L 26 mmol/L Anion Gap 11.0 mmol/L 8.0 mmol/L Blood Urea Nitrogen 15 mg/dl 15 mg/dl Creatinine 1.20 mg/dl 0.93 mg/dl Est Creatinine Clear Calc Drug Dose 76.7 ml/min 98.3 ml/min Estimated GFR () 75.2 102.3 Estimated GFR (Non- 64.9 88.3 BUN/Creatinine Ratio 12.4 16.3 Random Glucose 123 mg/dl 101 mg/dl Calcium Level 10.2 mg/dl 9.0 mg/dl Magnesium Level 2.0 mg/dl Total Bilirubin 0.5 mg/dl Direct Bilirubin 0.1 mg/dl Aspartate Amino Transf (AST/SGOT) 26 U/L Alanine Aminotransferase (ALT/SGPT) 37 U/L Alkaline Phosphatase 61 U/L Total Creatine Kinase 136 U/L 107 U/L 100 U/L Creatine Kinase MB 1.5 ng/ml 1.0 ng/ml 1.2 ng/ml Creatine Kinase MB Ratio 1.1 0.9 1.2 Troponin I < 0.015 ng/ml < 0.015 ng/ml < 0.015 ng/ml Total Protein 9.0 gm/dl Albumin 4.8 gm/dl Thyroid Stimulating Hormone (TSH) 1.130 uIu/ml Urine Color DK YELLOW Urine Appearance CLEAR Urine pH 8.0 Urine Specific [place] 1.021 Urine Protein NEG Urine Glucose (UA) NEG Urine Ketones 3+ Urine Occult Blood 2+ Urine Nitrite NEG Urine Bilirubin NEG Urine Urobilinogen NEG Urine Leukocyte Esterase TRACE Urine WBC (Auto) 1-5 /hpf Urine RBC (Auto) >30 /hpf Urine Hyaline Casts (Auto) 1-5 /lpf Urine Epithelial Cells (Auto) >30 /lpf Urine Bacteria (Auto) NEG Urine Renal Epithelial Cells /lpf Urine Pathogenic Casts /lpf Urine Mucus PRESENT Triglycerides Level 109 mg/dl Cholesterol Level 114 mg/dl HDL Cholesterol 40 mg/dl LDL Cholesterol, Calculated 52 mg/dl VLDL Cholesterol, Calculated 22 mg/dl Cholesterol/HDL Ratio 2.9 Hepatitis C Antibody Screen NEG Assessment & Plan 1. Syncope - associated with acute onset diaphoresis, shortness of breath and weakness - cardiac markers negative - evaluated by [employer]ice Dr. Chand concern for possible intermittent bradycardia based on right bundle branch blocks seen on stress test, EKG on admission showing bifascicular block recommend Cardiac monitoring as outpatient, he has arranged for Cardiac Monitoring set up in his office recommen do not return to work until Cardiac monitoring performed continue usual medications - advised to check BP and HR, do not give BP meds if systolic bp <= 100 or HR < 60 Gastropathy, non-bleeding erosive - stable on PPI CAD s/p stents - Cont ASA, Atenolol, Benzapril, Cozaar and Crestor Depression -stable, cont Celexa Disposition d/c home today ff up with PCP in 3-5 days Cardiac Monitoring to be set up by Dr. Chand Current Inpatient Medications: Current Inpatient Medications Medications (Trade) Dose Ordered Sig/Samantha Route Start Time Stop Time Status Last Admin Dose Admin Enoxaparin Sodium (Lovenox Inj) 40 mg Q24H SC 10/19/16 09:00 11/18/16 08:59 10/19/16 07:44 40 MG Acetaminophen (Tylenol Tab) 650 mg Q4H PRN PO 10/18/16 23:30 11/17/16 23:29 Nitroglycerin (Nitrostat Tab) 0.4 mg UD PRN SL 10/18/16 23:30 11/17/16 23:29 Morphine Sulfate (MoRPHine SULFATE INJ) 2 mg Q30M PRN IV 10/18/16 23:30 11/01/16 23:29 Polyethylene (Miralax Powder Packet) 17 gm DAILY PRN PO 10/18/16 23:30 11/17/16 23:29 Alprazolam (Xanax Tab) 0.5 mg DAILY PRN PO 10/18/16 23:45 11/17/16 23:44 Aspirin (Ecotrin Tab) 81 mg QAM PO 10/19/16 09:00 11/18/16 08:59 10/19/16 07:43 81 MG Atenolol (Tenormin Tab) 25 mg HS PO 10/19/16 21:00 11/18/16 20:59 Citalopram Hydrobromide (celeXA TAB) 20 mg HS PO 10/19/16 21:00 11/18/16 20:59 Cyclobenzaprine HCl (Flexeril Tab) 10 mg TID PRN PO 10/18/16 23:45 11/17/16 23:44 Losartan Potassium (coZAAR TAB) 50 mg QAM PO 10/19/16 09:00 11/18/16 08:59 10/19/16 07:43 50 MG Multivitamins (Multivitamin Tab) 1 tab QAM PO 10/19/16 09:00 11/18/16 08:59 10/19/16 07:43 1 TAB Pantoprazole Sodium (Protonix Tab) 40 mg QAM PO 10/19/16 09:00 11/18/16 08:59 10/19/16 07:43 40 MG Rosuvastatin Calcium (Crestor Tab) 20 mg HS PO 10/19/16 21:00 11/18/16 20:59 Tramadol HCl (Ultram Tab) 50 mg Q6 PRN PO 10/18/16 23:45 11/17/16 23:44 Enalapril Maleate (Vasotec Tab) 20 mg QAM PO 10/19/16 09:00 11/18/16 08:59 10/19/16 07:44 20 MG Ascorbic Acid (Vitamin C Tab) 250 mg BID PO 10/19/16 09:00 11/18/16 08:59 10/19/16 07:44 250 MG Miscellaneous (Iv Fluids Completed) 1 ea PRN PRN N/A 10/19/16 00:45 10/19/17 00:44 10/19/16 01:08 1 EA
[2016-10-19 16:00] VITALS: BP 116/71; PULSE 59; TEMP 37.2; O2SAT 96
--- NOTE | 2016-10-19 16:01 | Discharge Instructions ---
Discharge Instructions Date of Service Oct 19, 2016. Admission Reason for Admission: Syncope Discharge Discharge Diagnosis / Problem: Syncope Discharge Goals Goal(s): Diagnostic testing, Therapeutic intervention Activity Recommendations Activity Limitations: as noted below (increase activity gradually as tolerated) Lifting Limitations: until after follow-up appointment Exercise/Sports Limitations: until after follow-up appointment Driving or Machine Use: No driving until cleared by Primary Care Physician and Pelota Maker Return to work after cleared by Primary Care Physician and Pelota Maker Instructions / Follow-Up Instructions / Follow-Up Do not take Atenolol if your Heart rate is 60 or below. Do not take Atenolol, Benazepril, Losartan if your systolic BP is 100 or less. Ensure adequate daily fluid intake. Pelota Maker Dr. 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 His office number is . Follow up with Dr. Andrews (associate of Dr. Munoz) on Monday October 24, 2016 at 10:45am. Current Hospital Diet Patient's current hospital diet: AHA Diet (Heart Healthy) Discharge Diet Recommended Diet: AHA Diet (Heart Healthy) Pending Studies Studies pending at discharge: yes List of pending studies: Cardiac Monitoring c/o Pelota Maker Dr. Chand ; Tel no. Laboratory Results Lipid Panel Test 10/19/16 07:48 Range/Units Triglycerides Level 109 0-150 mg/dl Cholesterol Level 114 0-200 mg/dl HDL Cholesterol 40 mg/dl Cholesterol/HDL Ratio 2.9 LDL Cholesterol, Calculated 52 mg/dl Medical Emergencies . Who to Call and When: Medical Emergencies: If at any time you feel your situation is an emergency, please call 911 immediately. . Non-Emergent Contact Non-Emergency issues call your: Primary Care Provider, Pelota Maker Call Non-Emergent contact if: you have a fever, your pain is not controlled, you have any medication questions . Past History Medical & Surgical History: (1) Coronary atherosclerosis (2) Dyslipidemia (3) Hypertension (4) Shortness of breath (5) History of coronary artery disease (6) Syncope (7) DJD (degenerative joint disease), cervical (8) Cataract (9) OA (osteoarthritis) of knee (10) Erosive gastropathy (11) H/O hernia repair (12) History of carpal tunnel surgery (13) History of back surgery . "Provider Documentation" section prepared by Matt Tomas. . VTE Core Measure Inpt VTE Proph given/why not?: Enoxaparin (Lovenox)SQ
--- NOTE | 2016-10-19 16:12 | Discharge Summary ---
Discharge Summary Date of Service Oct 19, 2016. Discharge Summary Admission Date: Oct 18, 2016 at 23:32 Discharge Date: Oct 19, 2016 Discharge Disposition: Home Principal Diagnosis: Syncope Secondary Diagnoses/Problems: Please refer to hospital course below. Consultations: Tandem Operator Dr. Chand Pending Studies/Follow-Up: Cardiac Monitoring Medication Reconciliation Continued Medications: Alprazolam (Xanax) 0.5 Mg Tab 0.5 MG PO UD PRN for PANIC ATTACKS/ANXIETY , TAB Amoxicillin (Amoxil) 500 Mg Cap 4 TAB PO 1 HOUR BEFORE DENTAL, #21 CAP Ascorbic Acid (Vitamin C) 500 Mg Tab 250 MG PO BID Aspirin (Aspirin Ec) 81 Mg Tab 81 MG PO QAM Atenolol (Tenormin) 25 Mg Tab 25 MG PO HS, TAB Benazepril (Lotensin) 20 Mg Tab 20 MG PO QAM, TAB Citalopram Hydrobromide (Celexa) 10 Mg Tab 20 MG PO HS, TAB Cyclobenzaprine Hcl (Flexeril) 10 Mg Tab 10 MG PO TID PRN for Muscle Spasms, TAB Diclofenac (Voltaren ) 25 Mg Tabec 20 MG PO BID PRN for knee pain, TAB Lorazepam (Ativan) 0.5 Mg Tab 1-2 TAB PO DAILY PRN for ANXIETY/PANIC ATTACKS , TAB Losartan Potassium (Cozaar) 50 Mg Tab 50 MG PO QAM, TAB Multivitamin (Multivitamin) Tab 1 TAB PO QAM, TAB Pantoprazole (Protonix) 40 Mg Tab 40 MG PO QAM, #30 TAB Rosuvastatin Calcium (Crestor) 10 Mg Tab 20 MG PO HS, TAB Tramadol (Ultram) 50 Mg Tab 1-2 TAB PO Q6 PRN for Pain, TAB Admission Information HPI (per Admitting provider): 61 yo M with known CAD and 100% occlusion of LAD presents via EMS after feeling lightheaded while outside working on his truck. He says he can't remember what happened but work up on the ground and felt weak with SOB and sweating. He thought he was dehydrated so he went inside his house and took a drink of water which didn't help him. He reports then vomiting a couple of times. He took a cold shower which also didn't help him and then he called his who called EMS. She is a nurse and was concerned he may be having a heart attack. The patient denies any chest pain and reports that back in 2002 when he had 4 stents placed ([facility]) be had some back pain at that time and had an abnormal stress test prompting the catheterization. He recently underwent pre-operative evaluation by Dr. Raphael and passed a treadmill stress test. He then underwent a hernia repair without incident/complication. He notes that Dr. Trent performed an EGD/CSP on him in July because of some anemia and he was found to have a gastric ulcer. He was then put on Metamucil and Protonix and has felt an improvement in some chronic LLQ pain since that time. He reports still getting that LLQ pain on occasion especially after eating and states that belching or passing gas makes it go away. He was having some dark coloring to his stool prior to this EGD but since starting the Protonix he has had normal stools and no blood seen. ROS reveals no headache, visual changes, cough, fevers, chills, sore throat, ear congestion or other cold symptoms, chest pain, diarrhea, constipation, UTI symptoms. He does report nausea, vomiting, SOB and weakness all which have resolved since being in the ER. He was given ASA in the ambulance and has been given IVF in the ER. Orthostatics were performed in ER and were negative and patient denies being lightheaded with standing. EKG reveals SB 56 with bifascicular block and QTc 571. CXR is unremarkable for acute process. Physical Exam (per Admitting): GEN: WNWD, in no acute distress, alert and appropriate HEENT: NC/AT, PERRL, EOMI, normal sclerae/conjunctivae, MMM, pharynx non-acute CARDIO: reg rate, S1/2 heard without m/g/r LUNGS: CTA bilaterally, no crackles, rales or wheezes, good diaphragmatic excursion ABD: soft, non-tender, non-distended, no rebound or guarding, +BS EXTREMITY: RP and DP palpable 2+ bilat, no LE swelling or edema, extremities are warm and well-perfused NEURO: CN 2-12 grossly intact, sensation intact throughout, no gross focal deficits MUSC: 5/5 strength throughout, no gross focal deficits SKIN: warm and dry Hospital Course Syncope - possible Intermittent Bradycardia, Heat Exhaustion, Dehydration - associated with acute onset diaphoresis, shortness of breath and weakness while fixing his vehicle outside - cardiac markers negative - evaluated by Tandem Operator Dr. Chand concern for possible intermittent bradycardia based on right bundle branch blocks seen on stress test, EKG on admission showing bifascicular block, Bradycardia 51 recommend Cardiac monitoring as outpatient, he has arranged for Cardiac Monitoring set up in his office recommend do not return to work until Cardiac monitoring performed continue usual medications - advised to check BP and HR, do not give BP meds if systolic bp <= 100 or HR < 60 Gastropathy, non-bleeding erosive - stable on PPI CAD s/p stents - Cont ASA, Atenolol, Benzapril, Cozaar and Crestor Depression -stable, cont Celexa Disposition d/c home today ff up with PCP in 3-5 days Cardiac Monitoring to be set up by Dr. Chand Total time spent on discharge = 40 minutes This includes examination of the patient, discharge planning, medication reconciliation, and communication with other providers. Discharge Instructions Discharge Instructions Date of Service Oct 19, 2016. Admission Reason for Admission: Syncope Discharge Discharge Diagnosis / Problem: Syncope Discharge Goals Goal(s): Diagnostic testing, Therapeutic intervention Activity Recommendations Activity Limitations: as noted below (increase activity gradually as tolerated) Lifting Limitations: until after follow-up appointment Exercise/Sports Limitations: until after follow-up appointment Driving or Machine Use: No driving until cleared by Primary Care Physician and Tandem Operator Return to work after cleared by Primary Care Physician and Tandem Operator Instructions / Follow-Up Instructions / Follow-Up Do not take Atenolol if your Heart rate is 60 or below. Do not take Atenolol, Benazepril, Losartan if your systolic BP is 100 or less. Ensure adequate daily fluid intake. Tandem Operator Dr. Chand's office will call you for appointment regarding Salesperson [employer] placement. His office number is . Follow up with Dr. Andrews (associate of Dr. Munoz) on Monday October 24, 2016 at 10:45am. Current Hospital Diet Patient's current hospital diet: AHA Diet (Heart Healthy) Discharge Diet Recommended Diet: AHA Diet (Heart Healthy) Pending Studies Studies pending at discharge: yes List of pending studies: Cardiac Monitoring c/o Tandem Operator Dr. Chand ; Tel no. Laboratory Results Lipid Panel Test 10/19/16 07:48 Range/Units Triglycerides Level 109 0-150 mg/dl Cholesterol Level 114 0-200 mg/dl HDL Cholesterol 40 mg/dl Cholesterol/HDL Ratio 2.9 LDL Cholesterol, Calculated 52 mg/dl Medical Emergencies . Who to Call and When: Medical Emergencies: If at any time you feel your situation is an emergency, please call 911 immediately. . Non-Emergent Contact Non-Emergency issues call your: Primary Care Provider, Tandem Operator Call Non-Emergent contact if: you have a fever, your pain is not controlled, you have any medication questions . Past History Medical & Surgical History: (1) Coronary atherosclerosis (2) Dyslipidemia (3) Hypertension (4) Shortness of breath (5) History of coronary artery disease (6) Syncope (7) DJD (degenerative joint disease), cervical (8) Cataract (9) OA (osteoarthritis) of knee (10) Erosive gastropathy (11) H/O hernia repair (12) History of carpal tunnel surgery (13) History of back surgery . "Provider Documentation" section prepared by Matt Tomas. . VTE Core Measure Inpt VTE Proph given/why not?: Enoxaparin (Lovenox)SQ
[2016-10-19] MEDS ORDERED: CITALOPRAM 20 MG TAB PO SCH (21:00)
[2016-10-19] MEDS ORDERED: ROSUVASTATIN CALCIUM 10 MG TAB PO SCH (21:00)
== END 2016-10-19 16:35 | disposition home or self-care (01) ==
LOC: EDBD 19:42 → C.EDA 19:45 → C.MED 23:32 → ENRESERV 23:57
PROVIDERS: ADMIT Hospitalist; ATTEND Internal Medicine
DX: R42 Dizziness and giddiness (principal); I25.10 Atherosclerotic heart disease of native coronary artery without angina pectoris; I10 Essential (primary) hypertension; E78.5 Hyperlipidemia, unspecified; I25.2 Old myocardial infarction; K31.9 Disease of stomach and duodenum, unspecified; Z79.82 Long term (current) use of aspirin; Z79.899 Other long term (current) drug therapy; Z95.5 Presence of coronary angioplasty implant and graft; F32.9 Major depressive disorder, single episode, unspecified; M47.812 Spondylosis without myelopathy or radiculopathy, cervical region; M17.10 Unilateral primary osteoarthritis, unspecified knee

== ENCOUNTER 2017-03-17 12:01 | Inpatient (IN) | payer OTHER ==
[2017-02-20 15:33] VITALS: BMI 36.0
--- NOTE | 2017-02-20 16:17 | PAT Medication Instructions ---
Service Date Feb 20, 2017. Current Home Medication List Alprazolam (Xanax), 0.5 MG PO UD PRN for PANIC ATTACKS/ANXIETY Ascorbic Acid (Vitamin C), 500 MG PO BID Aspirin (Aspirin Ec), 81 MG PO QAM Benazepril (Lotensin), 20 MG PO QAM Citalopram Hydrobromide (Celexa), 20 MG PO HS Cyclobenzaprine Hcl (Flexeril), 10 MG PO HS Furosemide (Lasix), 20 MG PO prn Lorazepam (Ativan), 1-2 TAB PO DAILY PRN for ANXIETY/PANIC ATTACKS Losartan Potassium (Cozaar), 50 MG PO QAM Melatonin (Melatonin Maximum Strengt), 1 TAB PO HS Multivitamin (Multivitamin), 1 TAB PO QAM Oxycodone/Acetaminophen 5MG/325MG (Percocet 5MG/325MG), 1 TABLET PO Q4H PRN for Pain Pantoprazole (Protonix), 40 MG PO QAM Phenazopyridine HCl (Pyridium), 200 MG PO TID Tamsulosin Hcl (Flomax), 0.4 MG PO QAM Tramadol (Ultram), 1-2 TAB PO Q6 PRN for Pain [[place]], 1 DOSE PO QPM Medication Instructions For Your Scheduled Surgery - Hold the following medications the morning of surgery: Benazepril (Lotensin), 20 MG PO QAM Furosemide (Lasix), 20 MG PO prn Losartan Potassium (Cozaar), 50 MG PO QAM Multivitamin (Multivitamin), 1 TAB PO QAM Ascorbic Acid (Vitamin C), 500 MG PO BID - Take the following medications the morning of surgery with a sip of water OTHERWISE NOTHING TO EAT OR DRINK AFTER MIDNIGHT: Aspirin (Aspirin Ec), 81 MG PO QAM Oxycodone/Acetaminophen 5MG/325MG (Percocet 5MG/325MG), 1 TABLET PO Q4H PRN for Pain (may take if needed up to 4 hours prior to surgery) Tramadol (Ultram), 1-2 TAB PO Q6 PRN for Pain (may take if needed up to 4 hours prior to surgery) Alprazolam (Xanax), 0.5 MG PO UD PRN for PANIC ATTACKS/ANXIETY Pantoprazole (Protonix), 40 MG PO QAM Lorazepam (Ativan), 1-2 TAB PO DAILY PRN for ANXIETY/PANIC ATTACKS - Take the following medications as scheduled the night before surgery: [[place]], 1 DOSE PO QPM Citalopram Hydrobromide (Celexa), 20 MG PO HS Cyclobenzaprine Hcl (Flexeril), 10 MG PO HS Oxycodone/Acetaminophen 5MG/325MG (Percocet 5MG/325MG), 1 TABLET PO Q4H PRN for Pain Ascorbic Acid (Vitamin C), 500 MG PO BID Alprazolam (Xanax), 0.5 MG PO UD PRN for PANIC ATTACKS/ANXIETY Tramadol (Ultram), 1-2 TAB PO Q6 PRN for Pain Melatonin (Melatonin Maximum Strengt), 1 TAB PO HS Lorazepam (Ativan), 1-2 TAB PO DAILY PRN for ANXIETY/PANIC ATTACKS If you have any questions please call us at [phone] or [phone] or [phone]
[2017-02-20 16:29] LABS: BASO % 0.2 %; BASO ABS # 0.02 K/uL (0-0.2); COMPLETE YES; EOS % 1.5 %; HEMATOCRIT 39.7 % (42-52); IG% 0.4 %; LYMPH % 23.1 %; LYMPH ABS # 1.94 K/uL (1.2-3.4); MEAN CELL VOLUME 90.2 fL (80-100); MEAN CORPUSCULAR HEMOGLOBIN 29.5 pg (25-34); MEAN CORPUSCULAR HGB CONC 32.7 g/dl (32-36); MONO % 7.7 %; NEUT % 67.1 %; PLATELET COUNT 225 K/uL (130-400); WHITE BLOOD COUNT 8.41 K/uL (4.8-10.8)
[2017-02-20 16:38] LABS: PARTIAL THROMBOPLASTIN RATIO 1.1; PROTHROMBIN TIME (PATIENT) 10.6 SECONDS (9.0-12.0)
[2017-02-20 16:39] LABS: CREATININE 1.09 mg/dl (0.60-1.40)
[2017-02-20 16:40] LABS: BUN/CREATININE RATIO 13.2 (10-20); CALCIUM 9.3 mg/dl (8.5-10.1); POTASSIUM 4.7 mmol/L (3.5-5.1)
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
[~2017-03-17] VITALS: Ht 172.7 cm; Wt 107.1 kg
[2017-03-17] VITALS (7 sets, daily range): BP systolic 99–148; BP diastolic 65–93; PULSE 53–89; TEMP 36.4–37.1; O2SAT 98–100; Ht 172.7 cm; Wt 107.1 kg
[2017-03-17] MEDS: TRANEXAMIC ACID INJ 1,000 MG in SYRINGE 0 ML IV SCH ×2 (06:30→14:20)
[~2017-03-17 12:01] MED LIST changes: +ACETAMINOPHEN 500 MG TAB PO SCH; -AMOX500C3 PO; -ATEN-173 PO; +ATROPINE SULFATE 0.1 MG/ML 5ML SYR IV PRN; +BUPIVACAINE 0.25% 30 ML VIAL ONE; +BUPIVACAINE 0.5 % 5 MG/1 ML PF 10ML VIAL ONE; +CEFAZOLIN 2000MG IV PUSH 10 ML IV SCH; -CRS/10 PO; -DICL1TAB5 PO; +EpHEDrine SULFATE INJ 50 MG/ML AMP IV PRN; +FAMOTIDINE 20 MG TAB PO SCH; +FENTANYL CITRATE INJ 50 MCG/1 ML 2 ML VIAL IV PRN; +FURO-85 PO; +GABAPENTIN 300 MG CAP PO SCH; +LACTATED RINGER'S 1000ML 1,000 ML IV SCH; +LACTATED RINGER'S 1000ML 500 ML IV ONE; +LACTATED RINGER'S 1000ML IV SCH; +MELATAB2 PO; +ONDANSETRON INJ 2 MG/ML 2 ML VIAL IV PRN; +OXYC-57 PO; +PHEN-876 PO; +ROPIVACAINE 5MG/ML 30 ML 150 MG, BUPIVACAINE 0.5% MPF INJ 30 ML, EpINEphrine HCL INJ 0.... INFIL SCH; +TAMS0.4C38 PO; +[UNRECOGNIZED DRUG - OTHER] PO
[2017-03-17] MEDS ORDERED: BACITRACIN 50000 UNIT VIAL ONE (14:05)
[2017-03-17] MEDS ORDERED: ORTHO JOINT ANESTHETIC ONE (14:05)
[2017-03-17] MEDS ORDERED: MIDAZOLAM HCL 1 MG/ML 2ML VIAL ONE (14:07)
[2017-03-17] MEDS ORDERED: FENTANYL CITRATE INJ 50 MCG/1 ML 2 ML VIAL ONE (14:08)
[2017-03-17] MEDS ORDERED: PROPOFOL IV EMULSION 10 MG/ML 20 ML VIAL IV ONE (15:35)
[2017-03-17] MEDS ORDERED: PHENYLEPHRINE 100MCG/ML 5ML SYR ONE (15:36)
[2017-03-17] MEDS ORDERED: FUROSEMIDE 20 MG TAB PO PRN (16:30)
[2017-03-17] MEDS ORDERED: MoRPHine SULFATE 2 MG/ML CARP IV PRN (16:30)
[2017-03-17] MEDS ORDERED: ONDANSETRON INJ 2 MG/ML 2 ML VIAL IV PRN (16:30)
[2017-03-17] MEDS ORDERED: OXYCODONE HCL IR 5 MG TAB (IMMEDIATE RELEASE) PO PRN (16:30)
[2017-03-17] MEDS ORDERED: METOCLOPRAMIDE HCL INJ 5 MG/ML 2 ML VIAL IV PRN (16:30)
[2017-03-17] MEDS ORDERED: LORAZEPAM 0.5 MG TAB PO PRN (16:30)
[2017-03-17] MEDS ORDERED: BISACODYL 10 MG SUPP PR PRN (16:30)
[2017-03-17] MEDS ORDERED: SOD PHOSPHATE/SOD BIPHOSPHATE ENEMA 132 ML BTL PR PRN (16:30)
[2017-03-17] MEDS ORDERED: ALPRAZOLAM 0.5 MG TAB PO PRN (16:30)
[2017-03-17] MEDS ORDERED: MAGNESIUM HYDROXIDE SUSP 30 ML UDC PO PRN (16:30)
--- NOTE | 2017-03-17 16:30 | [facility] Post Operative Brief Note ---
Immediate Operative Summary Operative Date Mar 17, 2017. Pre-Operative Diagnosis Advanced Osteoarthritis of Left Knee Post-Operative Diagnosis same Procedure(s) Performed Left Total Knee Arthroplasty Surgeon Dr. Mann Clarifier Surgeon(s) Cameron Rodriguez Pa-C Estimated Blood Loss 10 ml Findings as above Specimens Permanent A. Left Knee Bone and Tissue Complication(s) None Disposition Recovery Room / PACU
--- NOTE | 2017-03-17 17:02 | Discharge Instructions ---
Discharge Instructions Date of Service Mar 17, 2017. Admission Reason for Admission: Left Knee Degenerative Joint Disease Discharge Discharge Diagnosis / Problem: Left Total Knee Discharge Goals Goal(s): Decrease discomfort, Improve function Activity Recommendations Activity Limitations: as noted below . Instructions / Follow-Up Instructions / Follow-Up Activity and Therapy Recommendations: * If you are using [facility] then Physical Therapy will be provided until they feel you are ready to start Outpatient Physical Therapy. If you are not using a Home Health agency then Outpatient Physical Therapy should start about 3-5 days from your day of surgery. Therapy will last about 6-10 weeks * It is important not to put a pillow under your knee when you are relaxing or sleeping. It is just as important to make sure you are getting your knee perfectly straight as it is to regain your knee bend. * You were shown a series of exercises in the hospital. Do these exercises three times each day including the exercises you were shown in physical therapy. * Get up and walk several times each day. For the first four weeks, try not to stand or walk for more than one hour at a time. If you do stand or walk for more than one hour, you will not hurt anything, but your leg will likely swell. * As you feel comfortable, you may change from the walker or crutches to a cane and then to independent walking. Medications: * Narcotic You will likely be sent home from the hospital with a prescription for the narcotic pain medication that worked best throughout your stay. * Aspirin Most patients will be required to take Aspirin 325mg twice a day for 6 weeks after surgery. This is obtained [id number] and a prescription is not necessary. * Other medications may be prescribed for specific circumstances. If you have any questions, please call the office at . * Resume previous home medications unless otherwise instructed TEDs/Elastic Stockings: The white elastic stockings help limit swelling and prevent blood clots from forming in your legs.~ The more you wear them, the more they work. Wear them for six weeks. Showering: You may shower 5 days from the day of surgery. Let the soapy shower water run over the keshav. Do not scrub or soak the incision. Things To Watch For: * Drainage from the incision site that occurs more than one week after your surgery. * Increased redness at the incision site. * Fever above 102 degrees Fahrenheit. * Unusual chest pain or shortness of breath. * Call [facility] at with any of the above problems Follow-Up Visit: Follow-up with Dr. Mann 2-3 weeks after your day of surgery. An appointment was probably scheduled when you signed-up for surgery in the office. If you have any questions call Office Instructions: More detailed instructions as well as Frequently Asked Questions were provided in a folder by our office when you signed-up for surgery. Please review these instructions when you get home. If you have any further questions or concerns, please feel free to call the office at [phone] Current Hospital Diet Patient's current hospital diet: Regular Diet Discharge Diet Recommended Diet: Regular Diet Procedures Procedures Performed: Left Total Knee Arthroplasty Pending Studies Studies pending at discharge: no Medical Emergencies . Who to Call and When: Medical Emergencies: If at any time you feel your situation is an emergency, please call [phone] immediately. . Non-Emergent Contact Non-Emergency issues call your: Surgeon Call Non-Emergent contact if: wound has increased drainage, wound has increased redness . "Provider Documentation" section prepared by Gilberto Mann. . VTE Core Measure Inpt VTE Proph given/why not?: Other Anticoagulation (Aspirin 325 twice a day for 6 weeks)
--- NOTE | 2017-03-17 17:20 | DIAGNOSTIC IMAGING REPORT ---
L KNEE 1 OR 2 VIEWS ROUTINE HISTORY: 61 years-old Male SP TKA status post left knee total joint arthroplasty. Degenerative joint disease COMPARISON: Left knee radiographs 01/03/2017 TECHNIQUE: AP and lateral views of the left knee FINDINGS: Postoperative changes compatible with recent left knee total joint arthroplasty and patellar resurfacing. Alignment is satisfactory. No periprosthetic fracture. Volar skin keshav are noted. Surgical drain is in place along with expected postsurgical soft tissue swelling and deep tissue air. Persistent probable synovial calcifications are again seen about the knee. IMPRESSION: Status post left knee total joint arthroplasty and patellar resurfacing without complication identified. The above report was generated using voice recognition software. It may contain grammatical, syntax or spelling errors. Electronically signed by: Jasson Diaz M.D. 03/17/2017 5:19 PM Dictated Date/Time: 03/17/2017 5:17 PM
--- NOTE | 2017-03-17 17:34 | Anesthesiology Progress Note ---
Anesthesia Post Op Note Date & Time Mar 17, 2017 at 17:34 Vital Signs Pain Intensity: 0 Vital Signs Past 12 Hours Date Time Temp Pulse Resp B/P (MAP) Pulse Ox O2 Delivery O2 Flow Rate FiO2 03/17/17 17:15 54 18 104/75 98 03/17/17 17:15 36.5 56 18 03/17/17 17:10 54 17 03/17/17 17:10 54 17 114/69 100 03/17/17 17:05 55 15 115/75 100 03/17/17 17:05 55 15 03/17/17 17:01 116/69 03/17/17 17:00 54 15 100 03/17/17 17:00 54 15 03/17/17 16:56 113/71 03/17/17 16:55 55 18 03/17/17 16:55 55 18 100 03/17/17 16:51 113/80 03/17/17 16:50 59 23 100 03/17/17 16:50 59 23 03/17/17 16:48 127/78 03/17/17 16:45 36.5 62 16 127/78 99 Nasal Cannula 3 03/17/17 12:15 37.1 89 18 148/93 98 Room Air Notes Mental Status: alert / awake / arousable, participated in evaluation Pt Amnestic to Procedure: Yes Nausea / Vomiting: adequately controlled Pain: adequately controlled Airway Patency, RR, SpO2: stable & adequate BP & HR: stable & adequate Hydration State: stable & adequate Neuraxial Anesthesia: was administered, sensory block is resolving Anesthetic Complications: no major complications apparent
[2017-03-17] MEDS: SODIUM CHLORIDE 0.9% 1000ML 1,000 ML IV SCH (19:42)
--- NOTE | 2017-03-17 20:01 | OPERATIVE REPORT ---
DATE OF OPERATION: 03/17/2017 PREOPERATIVE DIAGNOSIS: Primary osteoarthritis of the left knee. POSTOPERATIVE DIAGNOSIS: Same. PROCEDURE: Left total knee arthroplasty. SURGEON: Gilberto Mann DO. DINKEY BRAKEMAN: Pio Rodriguez PA-C, whose assistance was necessary for positioning of the knee and helping with closure. ANESTHESIA: Spinal with a left adductor nerve block. COMPLICATIONS: None. CONDITION: Stable to PACU. IMPLANTS USED: I used a [employer] Vanguard left total knee arthroplasty system with a size 65 femur, 71 tibia, a size 12 posterior stabilized poly and a size 31 patella. All components were cemented with Palacos-G cement. INDICATIONS: Marquise is a pleasant 61-year-old male who has a 40 year history of left knee pain. He had surgery when he was younger for an ACL tear. He went on to develop arthritis and over the past several months this has become unbearable. X-rays showed advanced osteoarthritis of the knee. After failing extensive conservative treatment, he elected to proceed with a left total knee arthroplasty. OPERATION AND FINDINGS: On 03/17/2017, he arrived at [facility] for the above procedure. He was seen in the preoperative holding area and the operative extremity was identified and signed. He was given a preoperative antibiotic, a spinal anesthetic and a left adductor nerve block. He was taken back to the operating room, laid on the table in supine position and put under basic sedation. The left knee was then prepped and draped in sterile fashion. Time-out was done and the patient and operative extremity was properly identified. A midline incision was made directly over the patella. Dissection was taken down to the extensor mechanism and a medial parapatellar arthrotomy was used. The medial retinaculum was released, the fat pad was left intact. The knee was then flexed. There was a lot of osteophyte formation. There were also several loose bodies. A drill was sent down the center of the femoral canal, followed by an intramedullary tammy. Off that tammy, a distal femoral cutting block was placed and 12 mm was resected off the distal femur at 5 degrees of valgus. A posterior referencing guide was then used and the femur measured to be a size 65. Two drill holes were placed in 3 degrees of external rotation and a 4-in-1 cutting block was impacted into place. Anterior, posterior and chamfer cuts were then made. A box cutting guide was then impacted onto the distal femur and the box was resected for the posterior stabilizing component. The proximal tibia was then exposed. A drill was sent down the center of the tibial canal followed by an intramedullary tammy. Off that tammy, a proximal tibial resection guide was placed and the proximal tibia was resected at 2 mm off the low medial side. The posterior aspect of the knee was then opened up and any additional meniscal fragments were removed. A curved osteotome was used to remove the osteophytes off the posterior aspect of the knee. The tibia was then exposed again. It measured to be a size 71. It was set in the appropriate rotation, drilled and then punched. Trial components were placed. The knee was brought through a full range of motion and felt to be stable. The patella was then everted and 8 mm was resected off the posterior aspect of the patella. The patella measured to be a size 31 and 3 peg holes were drilled. A trial patella was placed. The knee was brought through a full range of motion and felt to be stable. Trial components were all removed. The final components were then cemented in place with Palacos-G cement. A size 12 posterior stabilized bearing was snapped into place and the anterior bar was locked. The surrounding soft tissues were then injected with 100 mL of an orthopedic pain control cocktail. The knee was then irrigated with 3 liters of normal saline solution with bacitracin. Two drains were placed. The extensor mechanism was closed with #2 FiberWire suture in the superior medial aspect and #1 Vicryl both proximally and distally. The skin was then closed with 2-0 Vicryl, 3-0 V-Loc suture and keshav. He was then placed in a soft dressing and taken to the postanesthesia care unit in stable condition. He tolerated the procedure well. I attest to the content of the Intraoperative Record and any orders documented therein. Any exception s are noted below.
[2017-03-17] MEDS: KETOROLAC TROMETHAMINE 30 MG/ML VIAL IV. SCH (20:08)
[2017-03-17] MEDS: CEFAZOLIN IV 2,000 MG in SYRINGE 0 ML IV SCH (20:08)
[2017-03-17] MEDS: SENNA 8.6 MG TAB PO SCH (20:43)
[2017-03-17] MEDS: ASPIRIN 325 MG ECTAB PO SCH (20:43)
[2017-03-17] MEDS: DOCUSATE SODIUM 100 MG CAP PO SCH (20:44)
[2017-03-17] MEDS: CITALOPRAM 20 MG TAB PO SCH (20:44)
[2017-03-17] MEDS: CYCLOBENZAPRINE HCL 10 MG TAB PO SCH (20:44)
[2017-03-17] MEDS: ASCORBIC ACID 500 MG TAB PO SCH (20:45)
[2017-03-17] MEDS ORDERED: NON-FORMULARY MEDICATION (Melatonin (Melatonin Maximum Strengt) 1 TAB) PO SCH (21:00)
[2017-03-17] MEDS ORDERED: PHENAZOPYRIDINE HCL 200 MG TAB PO PRN (21:00)
[2017-03-17] MEDS: ACETAMINOPHEN 500 MG TAB PO SCH (22:12)
[2017-03-18] MEDS: KETOROLAC TROMETHAMINE 30 MG/ML VIAL IV. SCH ×4 (00:49→20:03)
[2017-03-18 03:15] VITALS: BP 105/68; PULSE 55; TEMP 36.8; O2SAT 97
[2017-03-18] MEDS: CEFAZOLIN IV 2,000 MG in SYRINGE 0 ML IV SCH (03:43)
[2017-03-18] MEDS: SODIUM CHLORIDE 0.9% 1000ML 1,000 ML IV SCH ×2 (03:43→13:41)
[2017-03-18] MEDS: ACETAMINOPHEN 500 MG TAB PO SCH ×3 (05:53→21:46)
[2017-03-18 06:22] LABS: HEMATOCRIT 31.6 % (42-52); MEAN CELL VOLUME 88.8 fL (80-100); MEAN CORPUSCULAR HEMOGLOBIN 29.2 pg (25-34); MEAN CORPUSCULAR HGB CONC 32.9 g/dl (32-36); MEAN PLATELET VOLUME 10.3 fL (7.4-10.4); PLATELET COUNT 227 K/uL (130-400); RED BLOOD COUNT 3.56 M/uL (4.7-6.1); WHITE BLOOD COUNT 12.63 K/uL (4.8-10.8)
[2017-03-18 06:37] LABS: CALCIUM 8.2 mg/dl (8.5-10.1); CREATININE 0.75 mg/dl (0.60-1.40); POTASSIUM 4.1 mmol/L (3.5-5.1)
--- NOTE | 2017-03-18 07:01 | PROGRESS NOTE ---
DATE: 03/18/2017 CHIEF COMPLAINT: Status post left total knee arthroplasty postop day #1. PROGRESS: Marquise was seen and examined at bedside today. Overall, he is doing very well. He has very little pain in his left knee. He is happy with his progress. He has already been up to the bathroom and has no complaints. PHYSICAL EXAMINATION: LEFT KNEE: The dressing is clean and dry and the drain is to suction. He is lying with his knee in full extension. He has active dorsiflexion and plantarflexion of his left ankle and sensation is intact throughout. LABORATORY DATA: He has an H&H of 10.4 and 31.5. His PRP is not back yet. His vital signs are stable on room air. He is voiding on his own and his drain put out 200 mL so far. X-rays postoperatively of the left knee showed the prosthesis to be in anatomical alignment without any evidence of fracture, dislocation or loosening. IMPRESSION: Status post left total knee arthroplasty postop day #1. PLAN: At this point, he is doing well. He is on aspirin 325 mg twice a day for DVT prophylaxis. He will be seen by physical therapy today. Tomorrow we will change the dressing and pull the drain and likely discharge him to home.
[2017-03-18] MEDS: ENALAPRIL MALEATE 10 MG TAB PO SCH (07:48)
[2017-03-18] MEDS: TAMSULOSIN HCL 0.4 MG CAP PO SCH (07:49)
[2017-03-18] MEDS: ASCORBIC ACID 500 MG TAB PO SCH ×2 (07:49→20:36)
[2017-03-18] MEDS: LOSARTAN POTASSIUM 50 MG TAB PO SCH (07:49)
[2017-03-18] MEDS: DOCUSATE SODIUM 100 MG CAP PO SCH ×2 (07:50→20:36)
[2017-03-18] MEDS: ASPIRIN 325 MG ECTAB PO SCH ×2 (07:50→20:36)
[2017-03-18] MEDS: PANTOprazole SOD 40 MG TAB PO SCH (07:50)
[2017-03-18] MEDS: MULTIVITAMIN TAB PO SCH (07:50)
[2017-03-18 08:35] VITALS: BP 119/80; PULSE 62; TEMP 36.5; O2SAT 96
[2017-03-18 12:25] VITALS: BP 114/72; PULSE 62; TEMP 36.8; O2SAT 95
[2017-03-18 15:09] VITALS: BP 111/71; PULSE 69; TEMP 36.8; O2SAT 97
[2017-03-18] MEDS: CYCLOBENZAPRINE HCL 10 MG TAB PO SCH (20:36)
[2017-03-18] MEDS: CITALOPRAM 20 MG TAB PO SCH (20:36)
[2017-03-18] MEDS: SENNA 8.6 MG TAB PO SCH (20:37)
[2017-03-18 23:10] VITALS: BP 123/73; PULSE 61; TEMP 36.9; O2SAT 97
[2017-03-19] MEDS: KETOROLAC TROMETHAMINE 30 MG/ML VIAL IV. SCH ×3 (02:29→13:37)
[2017-03-19] MEDS: ACETAMINOPHEN 500 MG TAB PO SCH ×2 (05:41→13:37)
[2017-03-19 07:42] VITALS: BP 127/79; PULSE 62; TEMP 36.5; O2SAT 97
[2017-03-19] MEDS: MULTIVITAMIN TAB PO SCH (08:13)
[2017-03-19] MEDS: PANTOprazole SOD 40 MG TAB PO SCH (08:13)
[2017-03-19] MEDS: ENALAPRIL MALEATE 10 MG TAB PO SCH (08:13)
[2017-03-19] MEDS: LOSARTAN POTASSIUM 50 MG TAB PO SCH (08:13)
[2017-03-19] MEDS: ASPIRIN 325 MG ECTAB PO SCH (08:14)
[2017-03-19] MEDS: DOCUSATE SODIUM 100 MG CAP PO SCH (08:14)
[2017-03-19] MEDS: TAMSULOSIN HCL 0.4 MG CAP PO SCH (08:15)
[2017-03-19] MEDS ORDERED: ASPEC325 PO (09:18)
[2017-03-19] MEDS ORDERED: RXC5 PO (09:18)
[2017-03-19] MEDS: ASCORBIC ACID 500 MG TAB PO SCH (09:27)
--- NOTE | 2017-03-19 09:43 | PROGRESS NOTE ---
DATE: 03/19/2017 CHIEF COMPLAINT: Status post left total knee arthroplasty postop day #2. PROGRESS: Marquise was seen and examined at bedside today. Overall, he is doing very well, he says he has very little pain in the knee. He worked well yesterday with physical therapy, has no complaints. PHYSICAL EXAMINATION: LEFT KNEE: The dressing has been changed, the drain has been pulled, is sitting with his knee flexed to about 90 degrees. He has active dorsiflexion and plantarflexion of his left ankle. IMPRESSION: Status post left total knee arthroplasty postop day #2. PLAN: At this point, he is doing well and happy with his progress. He has been participating well with physical therapy and has very little pain. He is on aspirin for DVT prophylaxis. Will discharge him to home later today.
--- NOTE | 2017-03-19 09:48 | DISCHARGE SUMMARY ---
DISCHARGE DIAGNOSIS: Primary osteoarthritis of the left knee. PROCEDURE: Left total knee arthroplasty on 03/17/[address] Gilberto Mann. DISCHARGE INSTRUCTIONS: 1. Aspirin 325 mg twice a day for 6 weeks. 2. Oxycodone 5-10 mg every 4 hours as needed for pain. 3. Xanax 0.5 mg as needed. 4. Lotensin 20 mg daily. 5. Celexa 20 mg at night. 6. Flexeril 10 mg at night. 7. Lasix 20 mg as needed. 8. Ativan 0.5 mg as needed. 9. Cozaar 50 mg daily. 10. Melatonin 5 mg at night. 11. Protonix 40 mg daily. 12. Flomax 0.4 mg daily. 13. Tramadol as needed for pain. 14. Continue all other vitamins and supplements. 15. Follow up with Dr. Mann in 2 weeks. 16. Call the office of Dr. Mann with any questions or concerns. HOSPITAL COURSE: Marquise is a pleasant 61-year-old male who presented to my office with severe left knee pain. X-rays and clinical examination were diagnostic for severe osteoarthritis of the left knee. After failing conservative treatment, he elected to undergo a left total knee arthroplasty. On 03/17/2017, he arrived at [facility] and underwent a left knee replacement without complication. He had a spinal anesthetic and a left adductor nerve block. Postoperatively, he was started on aspirin 325 mg twice a day and discharged to general orthopedic floor. His hospital course was uneventful. On postop day #1, his H&H was stable at 10.4 and 31.6. He was up and ambulating well with physical therapy. His pain was controlled. On postop day #2, the dressing was changed, the drain was pulled. He continued to work well with physical therapy and was subsequently discharged to home with the above instructions.
[2017-03-19 10:48] VITALS: BP 127/79; PULSE 62; TEMP 36.5; O2SAT 97
== END 2017-03-19 14:24 | disposition home health service (06) | DRG 470 ==
LOC: C.ACU 12:01 → C.3E 12:50 → UNDOADMIN 16:34 → C.3E 16:34 → ENRESERV 17:16
PROVIDERS: ADMIT Orthopaedic Surgery; ATTEND Orthopaedic Surgery
PROC: 0SRD0J9 Replacement of Left Knee Joint with Synthetic Substitute, Cemented, Open Approach (ICD-10-PCS; principal; 2017-03-17 14:20)
DX: M17.12 Unilateral primary osteoarthritis, left knee (principal); J45.909 Unspecified asthma, uncomplicated; I25.10 Atherosclerotic heart disease of native coronary artery without angina pectoris; I10 Essential (primary) hypertension; I25.2 Old myocardial infarction; E78.5 Hyperlipidemia, unspecified; K21.9 Gastro-esophageal reflux disease without esophagitis; G62.9 Polyneuropathy, unspecified; D64.9 Anemia, unspecified; F32.9 Major depressive disorder, single episode, unspecified; G47.33 Obstructive sleep apnea (adult) (pediatric); F41.0 Panic disorder [episodic paroxysmal anxiety]; F40.240 Claustrophobia; E66.9 Obesity, unspecified; Z68.36 Body mass index [BMI] 36.0-36.9, adult; Z87.891 Personal history of nicotine dependence; Z95.5 Presence of coronary angioplasty implant and graft; Z79.82 Long term (current) use of aspirin; Z79.891 Long term (current) use of opiate analgesic; Z79.899 Other long term (current) drug therapy

== ENCOUNTER → 2017-05-29 | Outpatient (CLI) | payer OTHER ==
[~2017-05-29] MED LIST changes: -ACETAMINOPHEN 500 MG TAB PO SCH; +ASPEC325 PO; -ASPI81TA28 PO; -ATROPINE SULFATE 0.1 MG/ML 5ML SYR IV PRN; -BUPIVACAINE 0.25% 30 ML VIAL ONE; -BUPIVACAINE 0.5 % 5 MG/1 ML PF 10ML VIAL ONE; -CEFAZOLIN 2000MG IV PUSH 10 ML IV SCH; -EpHEDrine SULFATE INJ 50 MG/ML AMP IV PRN; -FAMOTIDINE 20 MG TAB PO SCH; -FENTANYL CITRATE INJ 50 MCG/1 ML 2 ML VIAL IV PRN; -GABAPENTIN 300 MG CAP PO SCH; -LACTATED RINGER'S 1000ML 1,000 ML IV SCH; -LACTATED RINGER'S 1000ML 500 ML IV ONE; -LACTATED RINGER'S 1000ML IV SCH; -ONDANSETRON INJ 2 MG/ML 2 ML VIAL IV PRN; -ROPIVACAINE 5MG/ML 30 ML 150 MG, BUPIVACAINE 0.5% MPF INJ 30 ML, EpINEphrine HCL INJ 0.... INFIL SCH; +RXC5 PO
--- NOTE | 2017-05-30 06:42 | SPLIT NIGHT TECHNICIAN REPORT ---
[facility] Split Night Polysomnogram - Knit Goods Washer Report Study date: 05/29/2017 Referring Physician: Dr. Grecia Eugene M.D. Name: SUZANNE JOHNSON Knit Goods Washer: JOHN Bradford. Date of : 1955 Height: 62 years, Height 5' 8" Sex: Male Weight: 235 lbs Age: 62 Neck Circum: 17.75inches BMI: Medications: 35.73 Ativan 0.5mg, Flomax 014mg, Percocet 5-325mg, Ultram 50mg, Protonix 40mg, Cozaar 50mg, Multivitamins, Melatonin 10mg, Xanax 0.5mg, Flexeril 10mg, Lotensin 20mg, Ascorbic Acid 500mg, Celexa 20mg, Lasix 20mg, ASA 81mg Patient History Study started on room air with ETCO2 monitoring in room # 8. 62 yr old male here tonight for a possible split pgs. He was diagnosed with EVI in 2006 but could not tolerate CPAP. He is snoring, waking up gasping, and having EDS. He had a knee replacement in March of 2017 and is still recovering from it so he is not currently working. His ESS=17/24. Neck circ=17.75inches. Parameters Monitored NPSG: E1-M2, E2-M1, Fp1-M2, Fp2-M1, F3-M2, F4-M2, F4-M1, C3-M2, C4-M2, C4-M1, O1-M2, O2-M2, O2-M1, T3-M2, T4-M1, P3-M2, P4-M1, CHIN1, CHIN2, HR, EKG, Legs, PFLOW, SNOR, FLOW, CFLOW, Tidal Volume, THOR, ABDO, SpO2, PLTH, CPRESS, ETCO2 Wave, ETCO2, pH SLEEP SUMMARY DATA DIAGNOSTIC TREATMENT Lights Out: 10:19:22 PM 1:09:22 AM Lights On: 12:55:52 AM 5:54:52 AM Total Recording Time (TRT): 156.5 min. 285.5 min. Total Sleep Time (TST): 81.0 min. 214.5 min. NREM Time: 81.0 min. 158.0 min. REM Time: 0.0 min. 56.5 min. Sleep Period Time (SPT): 120.0 min. 246.5 min. Sleep Efficiency (SE): 52 % 75 % Sleep Latency: 36.5 min. 39.0 min. Arousal Index: 25.2 4.2 PAP Treatment Levels: 4, 5, 6, 7, 8, 9 * Optimal Pressure(s) SLEEP STAGING DATA DIAGNOSTIC TREATMENT Duration (min) TST % Duration (min) TST % Stage Wake: 75.5 min. -- 71.0 min. -- WASO: 39.0 min. -- 32.0 min. -- NREM: 81.0 min. 100 % 158.0 min. 74 % Stage N1: 14.5 min. 18 % 14.0 min. 7 % Stage N2: 57.0 min. 70 % 114.5 min. 53 % Stage N3: 9.5 min. 12 % 29.5 min. 14 % REM: 0.0 min. 0 % 56.5 min. 26 % POSITIONAL DATA Event Count Index Event Count Index Supine: 7 93 17 28.2 Supine NREM: 7 93.3 17 39.8 Supine REM: N/A N/A 0 0 Non-Supine: 56 43.9 13 4.4 Non-Supine NREM: 56 43.9 10 4.5 Non-Supine REM: N/A N/A 3 3.9 AROUSAL SUMMARY DATA: Event Count Index Event Count Index Apnea Arousals: 1 1.5 1 0.3 Hypopnea Arousals: 14 10.4 3 0.8 Snore Arousals: 1 0.7 3 0.8 PLM Arousals: 13 9.6 3 0.8 Non-Specific Arousals: 6 4.4 4 1.1 Total Arousals: 34 25.2 15 4.2 MYOCLONUS (PLM) Event Count Index Event Count Index PLM: 67 49.6 168 47.0 PLM AROUSAL: 13 9.6 3 0.8 PLM W/O AROUSAL 67 49.6 165 46.2 PLM W/RESP EVENT 14 0.0 3 0.0 MYOCLONUS (PLM) Event Count Index Event Count Index LM: 3 39.3 50 14.0 LM AROUSAL: 3 2.2 2 0.6 LM W/O AROUSAL LM W/RESP EVENT LM NON SPECIFIC 71 52.6 202 56.5 HEART RATE DATA DIAGNOSTIC TREATMENT Sleep (bpm): 59 57 REM (bpm): N/A 91 NREM (bpm): 91 91 Tachycardia Count: 0 0 Tachycardia Duration: 0.00 0 Bradycardia Count: 0 0 Bradycardia Duration: 0.00 0 DIAGNOSTIC PORTION TREATMENT PORTION RESPIRATORY DATA Event Count Index Event Count Index AHI: -- 46.7 -- 8.4 RDI: -- 46.7 -- 8 Obstructive Apnea: 1 0.7 1 0.3 Central Apnea: 1 0.7 0 0.0 Mixed Apnea: 0 0.0 0 0.0 Hypopnea: 61 45.2 29 8.1 RERA: 0 0.0 0 0.0 Total Apneas: 2 1.5 1 0.3 RESPIRATORY DATA REM NREM SLEEP REM NREM SLEEP Supine Position: Obstructive Apneas: N/A 1 1 0 0 0 Central Apneas: N/A 1 1 0 0 0 Mixed Apneas: N/A 0 0 0 0 0 Hypopneas: N/A 5 5 0 17 17 RERA N/A 0 0 0 0 0 Total Supine Events: N/A 7 7 0 17 17 Supine AHI: N/A 93.3 93 0 39.8 28.2 Supine RDI: N/A 93.3 93.3 0.0 39.8 28.2 REM NREM SLEEP REM NREM SLEEP Non-Supine Position: Obstructive Apneas: N/A 0 0 0 1 1 Central Apneas: N/A 0 0 0 0 0 Mixed Apneas: N/A 0 0 0 0 0 Hypopneas: N/A 56 56 3 9 12 RERA N/A 0 0 0 0 0 Total Supine Events: N/A 56 56 3 10 13 Supine AHI: N/A 43.9 43.9 3.9 4.5 4.4 Supine RDI: N/A 43.9 43.9 3.9 4.5 4.4 OXYGEN DESTAURATION DATA: Event Count Index Event Count Index REM Desaturations: N/A N/A 8 8.5 NREM Desaturations: 68 50.4 33 12.5 SNORE DATA DIAGNOSTIC TREATMENT Snore Time: 11.6 1:48:22 AM Snore TST%: 7 3 Snore Arousal Count: 1 3 Snore Arousal Index: 0.7 0.8 Desaturation Event Summary: Minimum %SpO2 Event Count Mean/Min/Max Duration(sec.) Desaturation Index % Time In Bed > 90 148 22.3 / 6.5 / 58.0 30.2 67.6 86 - 90 32 16.8 / 6.5 / 42.5 14.1 31.4 81 - 85 1 12.8 / 12.8 / 12.8 15.6 0.9 76 - 80 0 N/A 0.0 0.2 71 - 75 0 N/A 0.0 0.0 66 - 70 0 N/A 0.0 0.0 61 - 65 0 N/A 0.0 0.0 56 - 60 0 N/A 0.0 0.0 51 - 55 0 N/A 0.0 0.0 < 50 0 N/A 0.0 0.0 OXYGEN SATURATION DATA DIAGNOSTIC TREATMENT SpO2 Mean Sleep: 91 % 91 % SpO2 Mean REM: N/A % 91 % SpO2 Mean NREM: 91 % 91 % SpO2 Minimum Sleep: 78 % 84 % SpO2 Minimum REM: N/A % 87 % SpO2 Minimum NREM: 78 % 84 % Time Below 90% (TST): 15.6 39.8 Time Below 88% (TST): 7.1 3.7 Total REM NREM Awake <50% 0.0 min. 0.0 min. 0.0 min. 0.0 min. 51 - 60% 0.0 min. 0.0 min. 0.0 min. 0.0 min. 61 - 70% 0.1 min. 0.0 min. 0.0 min. 0.1 min. 71 - 80% 0.7 min. 0.0 min. 0.2 min. 0.5 min. 81 - 90% 140.3 min. 29.2 min. 90.7 min. 20.5 min. 91 - 100% 294.2 min. 27.2 min. 147.2 min. 119.8 min. Average 91 91 91 92 Minimum SpO2 63 87 78 63 Desaturation Event Index 20.8 8.5 25.4 18.4 # Desat. Events below 89% 98 4 68 26 Time(%) with Saturation below 89% 6.5 0.5 4.6 1.4 Time(min.) with Saturation below 89% 28.5 2.3 20.1 6.1 Recording Knit Goods Washer Comments: Mr. Johnson slept in the right, left and supine positions. No cardiac arrhythmia noted. Some leg movements were noted. No bruxism noted. Snoring was noted and scored as a 2 on a scale of 1 through 5. (0=no snoring, 5=snoring loud enough to be heard through a closed door or down the diallo way) At 1:09am he had met specific Split-Night criteria (Split after AHI >5 according to order) during the diagnostic portion of this study. CPAP was initiated at +4 CMH2O and up-titrated to a level of +9CMH2O. An optimal pressure was not obtained. He went into supine REM at 5:44am. A Mirage FX Wide nasal mask by [employer] was used during titration. He awoke to use the restroom once during the night. He stated that he slept a little worse than normal but that he sometimes has nights like these. The final report will be interpreted and signed by a sleep physician. The completed physician report will then be placed in the patient medical record. Therapy Event: Therapy (cm H20) 0 4 5 6 7 8 9 Total Time at Pressure (min.) 156.5 139.9 48.6 19.7 19.6 10.6 47.1 TST at Pressure (min.) 81.0 90.9 37.6 15.7 13.6 10.6 46.1 # Periods 1 1 1 1 1 1 1 Sleep Onset (min.) 36.5 39.0 0.0 0.0 0.0 0.0 0.0 REM Onset (min.) N/A 107.5 0.0 N/A N/A N/A 36.6 Sleep Efficiency % 51 65 77 79 69 100 97 Wakefulness (%) 48.2 35.0 22.6 20.3 30.6 0.0 2.1 Wakefulness (min.) 75.5 49.0 11.0 4.0 6.0 0.0 1.0 NREM 1 (%) 9.3 4.6 9.3 5.1 7.0 1.2 1.1 NREM 1 (min.) 14.5 6.5 4.5 1.0 1.4 0.1 0.5 NREM 2 (%) 36.4 30.7 37.1 74.7 62.4 98.8 34.1 NREM 2 (min.) 57.0 43.0 18.0 14.7 12.2 10.4 16.1 NREM 3 (%) 6.1 7.5 0.0 0.0 0.0 0.0 40.4 NREM 3 (min.) 9.5 10.5 0.0 0.0 0.0 0.0 19.0 REM (%) 0.0 22.1 31.0 0.0 0.0 0.0 22.3 REM (min.) 0.0 30.9 15.1 0.0 0.0 0.0 10.5 # Arousals 34 3 6 3 2 1 0 Arousal Index 25.2 2.0 9.6 11.4 8.8 5.7 0.0 # Snore 436 30 8 10 22 3 6 Snore Index 323.0 19.8 12.8 38.2 97.0 17.0 7.8 AHI 46.7 2.0 8.0 26.7 26.5 17.0 7.8 AHI Supine 93.3 N/A 120.0 67.1 15.3 N/A 20.4 AHI Non-Supine 43.9 2.0 6.5 0.0 96.1 17.0 0.0 NREM AHI 46.7 0.0 13.3 26.7 26.5 17.0 10.1 REM AHI N/A 5.8 0.0 N/A N/A N/A 0.0 RDI 46.7 2.0 8.0 26.7 26.5 17.0 7.8 # Obstructive 1 0 0 0 1 0 0 # Central Ap 1 0 0 0 0 0 0 # Mixed 0 0 0 0 0 0 0 # Hypopneas 61 3 5 7 5 3 6 RERAS 0 0 0 0 0 0 0 Total Respiratory Events 63 3 5 7 6 3 6 Time Below SpO2 89.00% (min.) 10.2 2.2 0.3 2.8 5.4 0.4 1.1 Mean NREM SpO2 (%) 91 90 89 91 91 Mean REM SpO2 (%) N/A 90 91 N/A N/A N/A 91 Mean Sleep SpO2 (%) 91 90 91 90 89 91 91 Min NREM SpO2 (%) 78 85 87 85 84 86 88 Min REM SpO2 (%) N/A 87 89 N/A N/A N/A 88 Position Supine (min.) 4.5 0.0 0.5 6.3 11.7 0.0 17.6 Position Non-supine (min.) 76.5 90.9 37.1 9.5 1.9 10.6 28.4 LM Index Sleep 88.9 56.8 15.9 118.3 145.5 51.1 63.8 LM Index NREM 88.9 69.0 10.6 118.3 145.5 51.1 64.1 LM Index REM N/A 33.0 23.9 N/A N/A N/A 62.9 Mean Heart Rate (bpm) 59 58 55 56 57 56 57 Min Heart Rate (bpm) 55 52 52 53 55 54 53
--- NOTE | 2017-05-31 21:34 | POLYSOMNOGRAPH REPORT ---
CLINICAL DATA: A 62-year-old male with a BMI of 35.7, referred by Dr. Eugene with a previous history of sleep apnea and inability to tolerate CPAP, now snoring, awakening and gasping for breath and having excessive daytime sleepiness. His [place] sleepiness score is 17/24, this was a split night study. SLEEP ARCHITECTURE: For the diagnostic portion of the study, sleep period time was 120 minutes. Total sleep time was 81 minutes, all non-REM sleep. Sleep latency was delayed at 36.5 minutes. Sleep efficiency was 52%. Sleep consisted of stage N1 18%, stage N2 70%, and stage N3 12%. For the treatment portion of the study, sleep period time was 246.5 minutes. Total sleep time was 214.5 minutes divided between 158 minutes of non-REM sleep and 56.5 minutes of REM sleep. Sleep latency was delayed at 39 minutes. Sleep efficiency was reduced at 75%. Sleep consisted of stage N1 7%, stage N2 53%, stage N3 14%, and REM 26%. AROUSAL DATA: Prior to treatment, 34 arousals were recorded for an index of 25.2 per hour. During treatment, 15 arousals were recorded for an index of 4.2 per hour. PERIODIC LIMB MOVEMENT DATA: Prior to treatment, 71 limb movements during sleep were noted for an index of 52.6 per hour. During treatment, 202 limb movements during sleep were noted for an index of 50.5 per hour. ECHOCARDIOGRAM: Heart rates ranged from 57-91 beats per minute. No arrhythmias were noted. RESPIRATORY DATA: Severe sleep apnea that was diagnosed prior to treatment. The diagnostic AHI was 46.7. There was 1 obstructive and 1 central apneic episode and 61 hypopneic episodes. The mean AHI with treatment was 8.4. There was 1 obstructive apneic episode and 29 hypopneic episodes. OXIMETRY DATA: Nocturnal hypoxemia was seen prior to treatment. Oxygen acosta was 78% during non-REM sleep prior to treatment. The mean saturation after the treatment was 91%. CASEWORK MANAGER'S COMMENTS AND TREATMENT SUMMARY: The patient slept in the right, left, and supine positions. Snoring was mild, rated 2 on a scale of 1-5. At 1:09 a.m., he met split night criteria and a Mirage FX wide nasal mask from [employer] was used. He was titrated up to 9 cm of water pressure and at his final pressure setting, he slept for 46 minutes with an AHI of 7.8. IMPRESSION: Severe sleep apnea/hypopnea with diagnostic apnea/hypopnea index of 46.7 with nocturnal hypoxemia improved on CPAP 9 cm of water pressure Mirage FX wide nasal mask by [employer] with a residual apnea/hypopnea index of 7.8. RECOMMENDATIONS: The patient should be started on CPAP and seen back in followup within 90 days to document efficacy and compliance. MAURY
== END ==
LOC: C.NEUR 21:00
PROVIDERS: ATTEND Internal Medicine
DX: G47.33 Obstructive sleep apnea (adult) (pediatric) (principal); G25.81 Restless legs syndrome